=== PATIENT | male | born 1955 | race Caucasian/White ===

== ENCOUNTER 2021-05-15 12:08 | Inpatient (IN) | payer MEDICAID ==
[~2021-05-15] VITALS: Ht 175.3 cm; Wt 62.1 kg
--- NOTE | 2021-05-15 12:14 | NUR ---
HOME HEALTH & HOSPICE CONSULTAN, XENIA, , WANTS TO BE CALLED TO PICK HIM UP ONCE MEDICALLY CLEARED
--- NOTE | 2021-05-15 12:19 | NUR ---
BILATERAL LOWER EXTREMITY PAIN/SWELLING, AND ULCERATION.
--- NOTE | 2021-05-15 12:19 | NUR ---
BIB RA 860 C/O L LEG SWELLING/PAIN. CLINICAL DENTAL TECHNICIAN ON SCENE CALLED FOR MEDICAL CLEARANCE. KNOWN HEROIN USER. AAOX3, BREATHING EVEN AND UNLABORED, ASSISTED TO ER BED 14, CHANGED TO GOWN
[2021-05-15] MEDS ORDERED: PIPERACILLIN /TAZOBACTAM 3.375 G in IV D5W 50 ML IV ONE (12:30)
[2021-05-15] MEDS ORDERED: VANCOMYCIN 1 GM in IV D5W 250 ML IV ONE (12:30)
--- NOTE | 2021-05-15 12:50 | NUR ---
BLOOD SAMPLE OBTAINED AND SENT TO LAB
--- NOTE | 2021-05-15 13:06 | NUR ---
COVID SAMPLE OBTAINED AND SENT TO LAB
[2021-05-15 13:08] LABS: BASOPHILS # (AUTO) 0.4 K/uL (0.0-0.2); BASOPHILS % (AUTO) 1.4 % (0.0-2.0); EOSINOPHILS % (AUTO) 0.1 % (0.0-6.0); HEMATOCRIT 31 % (39-51); LYMPHOCYTES # (AUTO) 0.5 K/uL (0.8-4.8); MEAN CORPUSCULAR HGB CONC 32 g/dl (31.0-36.0); MEAN CORPUSCULAR VOLUME 86 fL (80-96); MONOCYTES # (AUTO) 0.6 K/uL (0.1-1.30); MONOCYTES % (AUTO) 2.1 % (2.0-12.0); NEUTROPHILS # (AUTO) 24.7 K/uL (1.8-8.9); NEUTROPHILS % (AUTO) 94.4 % (43.0-81.0); PLATELET COUNT (AUTO) 605 K/uL (150-450); RED BLOOD CELL COUNT(AUTO) 3.64 MIL/uL (4.5-6.0); WHITE BLOOD COUNT (AUTO) 26.2 K/uL (4.3-11.0)
--- NOTE | 2021-05-15 13:10 | NUR ---
EKG BEING DONE AT BEDSIDE
[2021-05-15 13:20] LABS: CALCIUM, SERUM 8.1 mg/dL (8.5-10.1); CARBON DIOXIDE 22 mmol/L (21-32); CHLORIDE 93 mmol/L (98-107); GLUCOSE 121 mg/dL (74-106); POTASSIUM 5.5 mmol/L (3.5-5.1); SODIUM SERUM 127 mmol/L (136-145)
[2021-05-15 13:24] LABS: UREA NITROGEN, BLOOD 101 mg/dL (7-18)
[2021-05-15 13:25] LABS: CREATININE 7.6 mg/dL (0.6-1.3)
--- NOTE | 2021-05-15 13:29 | NUR ---
TAKEN TO CT
[2021-05-15] MEDS ORDERED: IV NS 0.9% 1,000 ML BAG IV ONE (13:30)
[2021-05-15] MEDS ORDERED: MORPHINE SULFATE INJ 4 MG/ML DISP.SYRIN ONE (13:38)
--- NOTE | 2021-05-15 13:42 | NUR ---
panel on-call paged
--- NOTE | 2021-05-15 13:50 | NUR ---
CALLED NURSING SUP REGARDING PT BED
[2021-05-15] MEDS ORDERED: MORPHINE SULFATE INJ 2 MG/ML DISP.SYRIN IV ONE (14:00)
--- NOTE | 2021-05-15 14:08 | NUR ---
UNABLE TO PROVIDE URINE SAMPLE AT THIS TIME. WILL TRY AGAIN LATER
--- NOTE | 2021-05-15 14:54 | NUR ---
urine sample obtained and sent to lab
--- NOTE | 2021-05-15 15:25 | NUR ---
ROOM 114-1
[2021-05-15 15:28] LABS: BILIRUBIN,URINE SMALL (NEGATIVE); COLOR,URINE DARK YELLOW (YELLOW); LEUKOCYTE ESTERASE ,URINE SMALL (NEGATIVE); NITRITE, URINE POSITIVE (NEGATIVE); PROTEIN,URINE >=300 mg/dl (NEGATIVE); UGLUCOSE NEGATIVE (NEGATIVE); UROBILINOGEN,URINE 0.2 EU/dL (0.2)
[2021-05-15 15:43] LABS: BACTERIA,URINE 3+ /HPF (None Seen); RBC,URINE 81-100 /HPF (0-2); SQUAMOUS EPITHELIAL CELL,UR 0-2 /HPF (None Seen)
--- NOTE | 2021-05-15 15:50 | NUR ---
Sw received consult for homelessness/bilateral lower extremity wounds. Will follow-up at a later time.
[2021-05-15] MEDS ORDERED: Z GUARD REMEDY 4 OZ OINT TP PRN (16:00)
[2021-05-15] MEDS ORDERED: MAGNESIUM HYDROXIDE 30 ML UDC PO PRN (16:00)
--- NOTE | 2021-05-15 17:00 | NUR ---
MS/BOOM CRANE OPERATOR NOTES RECEIVED PATIENT A TRANSFER FROM ER VIA RNEY.PATIENT IS ALERT AND ORIENTED X2-3, ABLE TO MAKE NEEDS KNOWN. STABLE ON ROOM AIR. SEVERAL EXCORIATION WOUNDS ON BILATERAL LOWER AND UPPER EXTREMITIES. PICTURES TAKEN AND WOUND CARE CONSULT ORDERED. IV ACCESS ON RIGHT UPPER ARM #20G IS INTACT AND PATENT ON SALINE LOCK. ORIENTED PATIENT TO THE UNIT. SAFETY MEASURES IN PLACED: BED LOCKED ON LOWEST POSITION, SIDE RAILS UPX2, CALL LIGHT WITHIN REACH. WILL CONTINUE TO MONITOR.
[2021-05-15] MEDS: LORAZEPAM INJ 2 MG/ML VIAL IV PRN (17:20)
[2021-05-15] MEDS: ONDANSETRON HCL/PF 4 MG/2 ML VIAL IVP PRN (17:20)
[2021-05-15] MEDS: NICOTINE PATCH (21MG) 21 MG PATCH.TD24 TD SCH (17:23)
[2021-05-15 20:00] VITALS: BP 135/73
--- NOTE | 2021-05-15 20:00 | NUR ---
MS RN NOTE PT IN BED A/O X 2. NO SOB, NO DISTRESS OR DISCOMFORT NOTED. DENIES PAIN. NATE WITH SL 20G INTACT AND PATENT. KEPT HIM DRY AND CLEAN. ALL NEEDS ATTENDED. SIDE RAILS UP X 3 AND CALL LIGHT WITHIN REACH. VSS. CONTINUE TO MONITOR HIM.
[2021-05-15] MEDS: ACETAMINOPHEN 325 MG TABLET PO PRN (21:26)
[2021-05-15] MEDS: PIPERACILLIN /TAZOBACTAM 2.25 G in IV D5W 50 ML IV SCH (21:26)
[2021-05-15] MEDS: HEPARIN SODIUM, PORCINE 5000 UNITS/1 ML VIAL SQ SCH (21:27)
[2021-05-15 21:35] LABS: ALANINE AMINOTRANSFERASE 17 U/L (12-78); ALKALINE PHOSPHATASE 149 U/L (46-116); ASPARTATE AMINOTRANSFERASE 40 U/L (15-37); BILIRUBIN,DIRECT 0.1 mg/dL (0.0-0.2); BILIRUBIN,TOTAL 0.3 mg/dL (0.2-1.0); TOTAL PROTEIN, SERUM 7.8 g/dL (6.4-8.2)
[2021-05-16 04:00] VITALS: BP 133/31
[2021-05-16] MEDS: PIPERACILLIN /TAZOBACTAM 2.25 G in IV D5W 50 ML IV SCH ×3 (04:16→21:29)
--- NOTE | 2021-05-16 06:37 | NUR ---
MS RN NOTE PT UNABLE TO URINATE ALL NIGHT ON BLADDER SCANNER NOTED 600 ML RESIDUAL. INFORMED NONI EID WATCHMAKER APPRENTICE AND RECEIVED NEW ORDER TO INSERT F/C. ORDER NOTED AND CARRIED OUT.
--- NOTE | 2021-05-16 07:07 | NUR ---
MS RN NOTE TRIED TO INSERT F/C BUT NO SUCCESS PT IS C/O PAIN. NO ABD DISTENTION NOTED. ENDORSE TO DAY SHIFT NURSE TO FOLLOW UP. PT DENIES ANY PAIN OF DISCOMFORT PRIOR TO INSERT OF F/C.
[2021-05-16 07:28] LABS: BASOPHILS # (AUTO) 0.1 K/uL (0.0-0.2); BASOPHILS % (AUTO) 0.5 % (0.0-2.0); EOSINOPHILS % (AUTO) 0.2 % (0.0-6.0); HEMATOCRIT 27 % (39-51); HEMOGLOBIN 8.6 g/dL (13.5-17.5); LYMPHOCYTES # (AUTO) 0.7 K/uL (0.8-4.8); LYMPHOCYTES % (AUTO) 3.4 % (20.0-44.0); MEAN CORPUSCULAR HGB CONC 32 g/dl (31.0-36.0); MEAN CORPUSCULAR VOLUME 86 fL (80-96); MONOCYTES # (AUTO) 0.7 K/uL (0.1-1.30); MONOCYTES % (AUTO) 3.4 % (2.0-12.0); NEUTROPHILS # (AUTO) 18.8 K/uL (1.8-8.9); NEUTROPHILS % (AUTO) 92.5 % (43.0-81.0); PLATELET COUNT (AUTO) 496 K/uL (150-450); RED BLOOD CELL COUNT(AUTO) 3.09 MIL/uL (4.5-6.0); WHITE BLOOD COUNT (AUTO) 20.4 K/uL (4.3-11.0)
--- NOTE | 2021-05-16 07:46 | NUR ---
MS RN OPENING NOTES RECEIVED PATIENT IN BED, AWAKE, A/O X2. PATIENT ON ROOM AIR; NO SOB NOTED AT THIS TIME. PER ENGINEERING INTERN NURSE, DID NOT HAVE ANY OUTPUT SINCE LAST NIGHT. SHERMAN INSERTION WAS UNSUCCESSFUL. WILL TRY AGAIN LATER. NATE IV ACCESS PRESENT AND INTACT. SAFETY PRECAUTIONS IN PLACE; BED IN LOW POSITION AND LOCKED, RAILS UP X2, CALL LIGHT WITHIN REACH. WILL CONTINUE TO MONITOR PATIENT.
[2021-05-16] MEDS: HEPARIN SODIUM, PORCINE 5000 UNITS/1 ML VIAL SQ SCH ×2 (08:10→21:32)
[2021-05-16] MEDS: NICOTINE PATCH (21MG) 21 MG PATCH.TD24 TD SCH (08:12)
[2021-05-16 09:00] VITALS: BP 122/64
[2021-05-16] MEDS ORDERED: NICOTINE PATCH (21MG) 21 MG PATCH.TD24 TD SCH (09:00)
--- NOTE | 2021-05-16 09:20 | NUR ---
MS RN NOTES UNABLE TO NSERT REGULAR SHERMNA, SOMETHING IS IN THE WAY. PATIENT NOT AWARE IF HE HAS ANY PROSTATE PROBLEMS. MD NOTIFIED. OK PER MD TO TRY BETINA SHERMAN.
--- NOTE | 2021-05-16 10:05 | NUR ---
MS RN NOTES SHERMAN IN. CLOUDY YELLOWISH BRYAN URINE DRAINING.
--- NOTE | 2021-05-16 11:13 | NUR ---
WOUND CARE CONSULT: PT PRESENTS WITH RT ARM RAISED AREA AND OPEN CRUSTED AREA WITH PURULENT DRAINAGE, SACRAL STAGE 3 ULCER AND LOWER LEG WOUNDS, SCARS, SCABS WITH REDNESS AND EDEMA, ALL PRESENT ON ADMISSION. RECOMMENDATIONS MADE FOR SACRAL WOUND CARE AND SKIN PROTECTION. DISCUSSED WITH NURSING STAFF. SURGICAL WOUND CONSULT CALLED TO DR STEPHANIE LICONA FOR SACRAL WOUND AND DPM CONSULT CALLED TO DR ESTRADA. FOR UPPER EXTREMITY, DEFER TO PMD FOR POSSIBLE GENERAL SURGERY CONSULT. MD IN AGREEMENT WITH PLAN OF CARE. PT IS ON MAYA ISOFLEX LOW AIRLOSS BED. Addendum: 05/16/21 at 1116 by ZAY OSPINA WNDNU Amended: Links added.
[2021-05-16 11:29] LABS: ALBUMIN 1.6 g/dL (3.4-5.0); BILIRUBIN,TOTAL 0.3 mg/dL (0.2-1.0); CALCIUM, SERUM 7.8 mg/dL (8.5-10.1); MAGNESIUM 2.4 mg/dL (1.8-2.4); TOTAL PROTEIN, SERUM 6.3 g/dL (6.4-8.2)
[2021-05-16] MEDS ORDERED: HYDROGEL DRESSING 90 GM TUBE TP PRN (11:30)
[2021-05-16 11:36] LABS: CREATININE 8.7 mg/dL (0.6-1.3); POTASSIUM 6.7 mmol/L (3.5-5.1)
[2021-05-16 11:37] LABS: PHOSPHORUS 8.8 mg/dL (2.5-4.9)
--- NOTE | 2021-05-16 11:40 | NUR ---
MS RN NOTES RECEIVED CALL FROM LAB WITH CRITICAL FOR POTASSIUM 6.7, BUN 114, CR 8.7 AND PHOS 8.8 MD NOTIFIED AND AWARE
[2021-05-16] MEDS: HYDROGEL DRESSING 90 GM TUBE TP SCH (11:59)
[2021-05-16 12:08] VITALS: BP 122/64
[2021-05-16] MEDS ORDERED: DEXTROSE 50%-WATER 50 ML DISP.SYRIN IVP ONE (12:30)
[2021-05-16] MEDS ORDERED: Calcium Gluconate 1GM/10ML 4.65 MEQ in IV D5W 50 ML IV ONE (12:30)
[2021-05-16] MEDS ORDERED: SODIUM POLYSTYRENE SULFONATE 15 G/60 ML BOTTLE PO ONE (12:30)
[2021-05-16] MEDS ORDERED: INSULIN REGULAR, HUMAN 100 UNIT/ML 10 ML VIAL IV ONE (12:30)
[2021-05-16] MEDS ORDERED: IV NS 0.9% 1,000 ML IV ONE (13:00)
--- NOTE | 2021-05-16 13:40 | NUR ---
MS RN NOES PER NEPHROLOGY 10 UNITS REGULAR INSULIN IVP WITH DEXTROSE INJECTION 50% DYSP SYRINGE 50 MLS PRIOR BS GLUCOSE AT 105
--- NOTE | 2021-05-16 14:20 | NUR ---
MS RN NOTES RE-ASSESSED BLOOD GLUCOSE; BS 89
[2021-05-16] MEDS ORDERED: IV D5/ 0.9% NACL 1,000 ML IV PRN ×2 (16:30)
[2021-05-16 16:57] VITALS: BP 122/64
--- NOTE | 2021-05-16 17:03 | NUR ---
SS Consult requested for homelessness. SW will follow up at a later time.
--- NOTE | 2021-05-16 18:49 | NUR ---
MS RN CLOSING NOTES PATIENT REMAINS IN BED, ASLEEP BUT EASILY AWAKEN, A/O X2. PATIENT ON ROOM AIR; NO SOB NOTED DURING SHIFT. SHERMAN CATH IN PLACE DRAINING LITTLE PALE URINE. NATE IV ACCESS PRESENT AND INTACT, NATE MIDLINE PRESENT AND WELL AND L HAND G #22 IV ACCESS. ALL NEEDS ATTENDED DURING THE DAY. SAFETY PRECAUTIONS IN PLACE; BED IN LOW POSITION AND LOCKED, RAILS UP X2, CALL LIGHT WITHIN REACH. WILL ENDORSE TO CLAMP TRUCK DRIVER NURSE FOR AZALEA.
[2021-05-16 20:00] VITALS: BP 132/78
--- NOTE | 2021-05-16 20:00 | NUR ---
MS RN NOTE PT IN BED SITTING UP, A/O X 2, NO DISTRESS OR DISCOMFORT NOTED. DENIES PAIN. KEPT HIM DRY AND CLEAN. SL NATE MIDLINE #20 G AND LT #22G SL INTACT AND PATENT. NO S/S OF INFILTRATION NOTED. ALL NEEDS ATTENDED. VSS. CONTINUE TO MONITOR HIM.
[2021-05-17 04:00] VITALS: BP 146/86
[2021-05-17] MEDS: PIPERACILLIN /TAZOBACTAM 2.25 G in IV D5W 50 ML IV SCH ×3 (05:17→22:00)
--- NOTE | 2021-05-17 06:41 | NUR ---
MS RN NOTE PT IN BED AWAKE. NO DISTRESS OR DISCOMFORT NOTED. NO S/S OF PAIN NOTED. ALL NEEDS ATTENDED. KEPT HIM DRY AND CLEAN. F/C INTACT AND PATENT DRAINING YUKI COLOR URINE. SIDE RAILS UP X 2 AND CALL LIGHT WITHIN REACH. WILL ENDORSE TO DAY SHIFT NURSE FOR CONTINUE TO CARE.
[2021-05-17 08:00] VITALS: BP 149/59
[2021-05-17] MEDS: NICOTINE PATCH (21MG) 21 MG PATCH.TD24 TD SCH (08:09)
[2021-05-17] MEDS: THERAHONEY GEL 1.5 OZ TUBE TP SCH (08:12)
[2021-05-17] MEDS: HEPARIN SODIUM, PORCINE 5000 UNITS/1 ML VIAL SQ SCH ×2 (09:00→21:00)
[2021-05-17] MEDS: HYDROGEL DRESSING 90 GM TUBE TP SCH (09:11)
--- NOTE | 2021-05-17 09:56 | NUR ---
RN NOTE PT RESTING IN BED. A/O X3, NOT IN RESPIRATORY DISTRESS OR DISCOMFORT. DENIES PAIN. SL NATE MIDLINE #20 G AND LT #22G SL INTACT AND PATENT. SHERMAN CATH IN PLACE, SMALL AMOUNT OF URINE NOTED. WILL CONTINUE TO MONITOR HIM.
[2021-05-17 11:39] LABS: CALCIUM, SERUM 7.9 mg/dL (8.5-10.1)
[2021-05-17 11:48] LABS: POTASSIUM 6.6 mmol/L (3.5-5.1)
[2021-05-17 11:49] LABS: CREATININE 9.4 mg/dL (0.6-1.3)
[2021-05-17 12:00] VITALS: BP 121/78
[2021-05-17] MEDS ORDERED: ALBUTEROL HALF STRENGTH 1.25 MG/3 ML VIAL.NEB NEB SCH (12:00)
[2021-05-17] MEDS ORDERED: INSULIN REGULAR, HUMAN 100 UNIT/ML 10 ML VIAL IV ONE (12:00)
[2021-05-17] MEDS ORDERED: DEXTROSE 50%-WATER 50 ML DISP.SYRIN IVP ONE (12:00)
[2021-05-17] MEDS ORDERED: Calcium Gluconate 1GM/10ML 4.65 MEQ in IV D5W 50 ML IV ONE (12:00)
--- NOTE | 2021-05-17 13:45 | NUR ---
"SS Consult: SS consult for homelessness and bilateral lower extremity wounds. Pt. Is a 66-year-old male who demonstrates adequate insight to the reason for hospitalization. Pt. was oriented x3, alert, and cooperative. Pt. has hard of hearing. During interview, pt. was capable of following directions, made appropriate eye-contact, and appeared unkempt. Pt.s speech was at a normal rate and his mood was irritable. SW explored pt.s hx of substance abuse. Pt. reports using opioids [Heroin] for nearly 12 years. The last day used was on Saturday [05/15/21]. Pt. stated that he wants to get help but rejected referrals to rehab. SW provided pt. with [facility] Referrals. Pt. appears to be at the contemplation phase of change with his substance dependence. SW explored pt.s mental health. Pt. reported no hx of mental health, suicidal or homicidal ideation. Pt. denies auditory hallucinations, visual hallucinations, paranoia, or delusions. SW explored pt.s living situation. Per pt., he has been homeless for 12 years. Pt. expressed that he does not like shelters. Pt. stated that he has been speaking with this lady Fu, a Home and Automatic Screwmaker, that might help him get placed once discharge from hospital. Plan: SW provided available resources and pt. accepted. Pt. was not able to sign waiver, SW left waiver in chart. Resources Provided: [facility]: [address] [place] [address] Intake hours: 5:45am9:00am, walk-ins Saturday, Saturday, [facility]: [address] [place] [address] Intake hours: 5:45am12:30pm, Saturday and [facility]: [id number] [place] [address] Intake hours: 8:00am2:00pm, Saturday through winter Shelters: [facility] 2 | [facility] Address: Confidential (call for location ) Population Served: Coed # of Beds: 57 SPA 4 | [place] [facility] Provider: [facility] Last Address: [address] [facility], [address] # of Beds: 49 Population Served: Coed SPA 6 | [facility] Provider: [facility] Last Address: [address] [facility], [address] # of Beds: 49 Population Served: Coed [facility] Provider: Tory Bourgeois AZNarda Address: [address] [facility] [address] # of Beds: 20 Population Served: Women [facility] Facility Provider: Home at Last Address: [address] [facility] [address] # of Beds: 30 Population Served: Women SPA 8 | [facility] Provider: [facility] [place] Address: [address] [facility] [address] # of Beds: 65 Population Served: [facility] Year-round shelters: [place] [address] [address] ; [facility] [place] [address] [place] [address]; [place] [facility] [id number] [facility] [id number] Winter Shelters: [facility] [place] Provider: [facility] [place] Address: [address] [facility], [address] # of Beds: 47 Population Served: Coed SPA 6 | [facility] Catrachita Collado Day Provider: Home at Last Address: [address] [facility], [address] # of Beds: 66 Population Served: Andrew link bird [place] Provider: First to Serve Address: [address] [facility], [address] # of Beds: 56 Population Served: Andrew Bernstein Provider: /[facility] Address: [address] [facility], [address] # of Beds: 49 Population Served: [place] SPA 8 | [place] [facility] Provider: [facility] Serve Address: [facility] Vincent # of Beds: 37 Population Served: Coed Hygiene: [facility]: [address] [place] ; [facility] [address] [facility] ; [facility] [address] [facility] . Food Resources: [facility] at [facility]- [address] [facility]. [place]; Meet Each Need with Dignity ([facility]) [address] [facility]; [facility] [address] [facility]; [facility] [address] [facility]. Mental Health resources provided: [facility] [address] [place], [place] [phone] ; [facility] [place] [address] [facility] [address], [place], [place] [phone] ; [facility] [address] [address] Castañeda[place], [place] [phone] ; [facility] [address] [place], [place] [phone] Healthcare Clinics: [facility] [address] [facility], [address] [place]. [place] ; [facility] [address] [facility] [address] [place] [address]; [place] [address] [facility]. [place] [phone] Counseling--Outpatient [facility] [address] [facility], [address] [place], [place] [phone] (Specializes in in-depth psychotherapy for emotional distress: anxiety, depression, interpersonal conflicts, life transitions, childhood abuse) [facility] Guidance Center [address] [place] [address] (Assist with solving problem marital difficulties, separation & divorce, aging parents, & grief, chronic & terminal illness) [facility] [address] [place], [place] [address] (Deal with loss & grief, anxiety, marital difficulties) Homebound/Mental Health Services [address] [facility] [address] [place], [place] [phone] (Provide in-home mental services to people who are incapable of leaving their homes) [facility] Needs of the Elderly Senior Service/Resource Center [address] [place] [address] [facility] [address] [place], [place] [phone] PSYCHIATRIC OUTPATIENT SERVICES [facility] Partial Hospitalization and Intensive Outpatient Program (Managed Care and [facility] Only)[address] Troy Kramer[facility] [phone] [facility] Partial Hospitalization and Outpatient [id number] Sebastian[facility] [address] [place], [place] [phone] [facility] [place] Hta[address] [facility] [address] [place], [place] [phone] [facility] Partial Hospitalization and Outpatient Ozngzbv60161 [place], [phone] Substance Abuse resources provided included: [facility] Substance Abuse Self-Helpline (SAS) ; C[facility]LP [address] [facility] [place]. [place] [address] ; [facility] [address] [facility] [address] ; [facility] [address] Sebastian BldivinaStat[facility] Island University [facility] [address] ; [facility] [address] [facility] [address] ; [facility] [address] [facility] [phone] ; [facility] [address] [facility] [phone] ; [facility] Substance Abuse Helpline(SAS)[facility] ; [facility] ; [facility] [place]; [facility] [place]; [facility] [place]; [facility] [address]; [facility]; [facility] [place]; [facility] [place]; [facility], [facility]. [place]; Alcoholics Anonymous -SFV; Us-Aiwa-Lkfonpq ; Marijuana Anonymous -SFV; Narcotics Anonymous www.na.org;"
[2021-05-17 16:00] VITALS: BP 159/67
--- NOTE | 2021-05-17 18:53 | NUR ---
RN NOTE PT RESTING IN BED. A/O X3, NOT IN RESPIRATORY DISTRESS OR DISCOMFORT. DENIES PAIN. SL NATE MIDLINE #20 G AND LT #22G SL INTACT AND PATENT. SHERMAN CATH IN PLACE, SMALL AMOUNT OF URINE NOTED. WILL CONTINUE TO MONITOR. PT FOR HD. CONSENT FORM SIGNED FOR TREATMENT AND HD PERMACATH INSERTION. DUE MEDICATIONS GIVEN. NEEDS ATTENDED.
--- NOTE | 2021-05-17 19:15 | NUR ---
RN OPENING NOTES RECEIVED PATIENT ON BED , ALERT ORIENTED X 3, RESPIRATORY EVEN AND UNLABORED NO SOB NOTED. REMAIN AFEBRILE, ON ROOM AIR SATING AT 98%. NOTED WITH RIGHT UPPER ARM MID LINE AND LEFT HAND IN LINE #22, INTACT, PATENT, FLUSHED WITH NS, NO INFILTRATION NOTED AT SITE. RIGHT GROIN HD SITE, NO BLEEDING NOTED. FOR HEMODIALYSIS TODAY. SHERMAN CATHETER INTACT AND IN PLACED DRAINING WELL. ALL SAFETY MEASURE PROVIDED. BED IN LOWEST POSITION, LOCKED. CONTINUE TO MONITOR.
[2021-05-17 20:00] VITALS: BP 154/97
[2021-05-17] MEDS ORDERED: LINEZOLID RTU BAG 600 MG in PREMIX 1 EA IV SCH (21:00)
[2021-05-17] MEDS: LINEZOLID 600 MG TABLET PO SCH (22:53)
[2021-05-18 04:00] VITALS: BP 155/79
[2021-05-18] MEDS: PIPERACILLIN /TAZOBACTAM 2.25 G in IV D5W 50 ML IV SCH ×3 (04:59→21:47)
--- NOTE | 2021-05-18 07:27 | NUR ---
RN CLOSING NOTES NO SIGNIFICANT CHANGES THROUGH OUT THE SHIFT, RESPIRATORY EVEN AND UNLABORED NO SOB NOTED. REMAIN AFEBRILE, ON ROOM AIR SATING AT 98%. PLACED ON NPO. SHERMAN CATHETER INTACT AND IN PLACED DRAINING WELL. ALL DUE MEDS GIVEN ORDERED. ALL SAFETY MEASURE PROVIDED. BED IN LOWEST POSITION, LOCKED. CONTINUE TO MONITOR.
--- NOTE | 2021-05-18 07:44 | NUR ---
RN OPENING NOTE PATIENT RECEIVED IN BED, AWAKE, A&OX3. PATIENT ON ROOM AIR WITH NO SIGNS OF LABORED BREATHING AT THIS TIME. SHERMAN CATH IN PLACE, PATENT. RIGHT UA MIDLINE, LEFT HAND 22G SL AND RIGHT GROIN HD CATH IN PLACE. NO SIGNS OF ACUTE DISTRESS NOTED AT THIS TIME. BED LOCKED AND IN LOWEST POSITION, CALL LIGHT WITHIN REACH, 2 SIDE RAILS UP. WILL CONTINUE TO MONITOR.
[2021-05-18 08:00] VITALS: BP 148/88
[2021-05-18] MEDS: LINEZOLID 600 MG TABLET PO SCH ×2 (08:02→21:47)
[2021-05-18] MEDS: HYDROGEL DRESSING 90 GM TUBE TP SCH (08:02)
[2021-05-18] MEDS: THERAHONEY GEL 1.5 OZ TUBE TP SCH (08:02)
[2021-05-18] MEDS: NICOTINE PATCH (21MG) 21 MG PATCH.TD24 TD SCH (08:03)
[2021-05-18] MEDS: HEPARIN SODIUM, PORCINE 5000 UNITS/1 ML VIAL SQ SCH ×2 (08:38→21:49)
--- NOTE | 2021-05-18 08:38 | NUR ---
RN NOTE PATIENT SCHEDULED FOR SURGERY TODAY. HEPARIN HELD THIS AM PER [facility] WHIT ORDER. WILL CONTINUE TO MONITOR.
[2021-05-18 09:20] LABS: CALCIUM, SERUM 7.6 mg/dL (8.5-10.1); POTASSIUM 5.7 mmol/L (3.5-5.1)
[2021-05-18] MEDS ORDERED: LIDOCAINE 1% INJ 50 ML MDV IJ ONE (09:53)
[2021-05-18] MEDS ORDERED: BUPIVACAINE 0.25% 75 MG/30 ML VIAL ONE (09:53)
[2021-05-18] MEDS ORDERED: IOHEXOL 240MG/ML 50 ML IV ONE (09:53)
[2021-05-18] MEDS ORDERED: DEXAMETHASONE SOD PHOSPHATE 10 MG/ML VIAL ONE (09:54)
[2021-05-18] MEDS ORDERED: DEXAMETHASONE SOD PHOSPHATE 4 MG/ML VIAL ONE (09:54)
[2021-05-18 09:58] LABS: CREATININE 7.7 mg/dL (0.6-1.3)
[2021-05-18] MEDS ORDERED: methylPREDNISolone ACETATE 80 MG/ML VIAL ONE (10:07)
[2021-05-18] MEDS ORDERED: FAMOTIDINE/PF INJ 20 MG/2 ML VIAL IV ONE (11:56)
[2021-05-18] MEDS ORDERED: FENTANYL PF 250MCG/5ML AMPUL ONE (11:56)
--- NOTE | 2021-05-18 12:29 | NUR ---
RN NOTE PATIENT PICKED UP FOR SURGERY.
[2021-05-18] MEDS ORDERED: SILVER NITRATE APPLICATOR 1 EA BOX ONE (12:50)
[2021-05-18] MEDS: MORPHINE SULFATE INJ 2 MG/ML DISP.SYRIN IV PRN (13:44)
--- NOTE | 2021-05-18 13:59 | NUR ---
RN NOTE PATIENT RETURNED FROM SURGERY. VITAL SIGNS STABLE. PATIENT MOANING AND SCREAMING IN PAIN REPORTING 10/10 PAIN IN BILATERAL LOWER EXTREMITIES, PER OR REPORT, PATIENT DID NOT RECEIVE PAIN MEDICATION. MORPHINE GIVEN PER PRN ORDER. WILL CONTINUE TO MONITOR.
[2021-05-18] MEDS ORDERED: VANCOMYCIN 1 GM in IV D5W 250 ML IV SCH (14:00)
[2021-05-18 16:00] VITALS: BP 98/66
--- NOTE | 2021-05-18 18:37 | NUR ---
RN CLOSING NOTE PATIENT REMAINS IN BED, AWAKE, A&OX3. PATIENT ON ROOM AIR WITH NO SIGNS OF LABORED BREATHING AT THIS TIME. SHERMAN CATH IN PLACE, PATENT. RIGHT UA MIDLINE, LEFT HAND 22G SL AND RIGHT GROIN HD CATH IN PLACE. NO SIGNS OF ACUTE DISTRESS NOTED AT THIS TIME. ALL NEEDS ATTENDED DURING SHIFT. BED LOCKED AND IN LOWEST POSITION, CALL LIGHT WITHIN REACH, 2 SIDE RAILS UP. WILL ENDORSE TO CCTV TECHNICIAN NURSE.
--- NOTE | 2021-05-18 19:00 | NUR ---
RN NOTE RECEIVED PATIENT IN BED, AO X 3, IN NO ACUTE DISTRESS AT THIS TIME. SATURATION AT 99% ON ROOM AIR, HR IS 99. NOTED IV SITE AT L HAND 22G, AND NATE MIDLINE, PATENT AND FLUSHING WELL, AND R FERMORAL HD CATH, NO S/S OF INFECTION. SHERMAN CATHETER CONNECTED TO URINE BAG IN PLACE, DRAINING TO A CLEAR TO CLOUDY, YELLOW OUTPUT. SAFETY MEASURES IMPLEMENTED. PATIENT BED ALARM IS ON. HEAD OF BED ELEVATED. BED IS LOCKED, IN LOWEST POSITION AND SIDE RAILS UP. CALL LIGHT WITHIN REACH OF THE PATIENT. WILL CONTINUE TO MONITOR AND REASSESS FOR ANY CHANGES.
[2021-05-18 20:00] VITALS: BP 114/62
[2021-05-19] VITALS: BP 114/62
[2021-05-19 04:00] VITALS: BP 153/83
[2021-05-19] MEDS: PIPERACILLIN /TAZOBACTAM 2.25 G in IV D5W 50 ML IV SCH ×2 (06:02→12:06)
--- NOTE | 2021-05-19 07:31 | NUR ---
RN OPENING NOTE PATIENT RECEIVED IN BED, SLEEPING. PATIENT ON ROOM AIR WITH NO SIGNS OF LABORED BREATHING AT THIS TIME. SHERMAN CATH IN PLACE, PATENT. RIGHT UA MIDLINE, LEFT HAND 22G SL AND RIGHT GROIN HD CATH IN PLACE. NO SIGNS OF ACUTE DISTRESS NOTED AT THIS TIME. BED LOCKED AND IN LOWEST POSITION, CALL LIGHT WITHIN REACH, 2 SIDE RAILS UP. WILL CONTINUE TO MONITOR.
[2021-05-19 08:00] VITALS: BP 145/82
[2021-05-19 08:03] LABS: CALCIUM, SERUM 7.3 mg/dL (8.5-10.1); CREATININE 5.5 mg/dL (0.6-1.3); POTASSIUM 4.7 mmol/L (3.5-5.1)
[2021-05-19] MEDS: LINEZOLID 600 MG TABLET PO SCH (08:31)
[2021-05-19] MEDS: NICOTINE PATCH (21MG) 21 MG PATCH.TD24 TD SCH (08:31)
[2021-05-19] MEDS: HEPARIN SODIUM, PORCINE 5000 UNITS/1 ML VIAL SQ SCH ×2 (08:32→20:22)
[2021-05-19] MEDS: THERAHONEY GEL 1.5 OZ TUBE TP SCH (08:34)
[2021-05-19] MEDS: HYDROGEL DRESSING 90 GM TUBE TP SCH (08:34)
[2021-05-19] MEDS: MORPHINE SULFATE INJ 2 MG/ML DISP.SYRIN IV PRN (10:51)
--- NOTE | 2021-05-19 15:45 | NUR ---
SS Consult/Discharge: Upon discharge, pt. stated that Catrachita Phipps [close friend, or [phone]] will pick him up.
[2021-05-19 16:00] VITALS: BP 150/77
--- NOTE | 2021-05-19 18:32 | NUR ---
RN CLOSING NOTE PATIENT REMAINS IN BED, RESTING. PATIENT ON ROOM AIR WITH NO SIGNS OF LABORED BREATHING AT THIS TIME. SHERMAN CATH IN PLACE, PATENT. RIGHT UA MIDLINE, LEFT HAND 22G SL AND RIGHT GROIN HD CATH IN PLACE. NO SIGNS OF ACUTE DISTRESS NOTED AT THIS TIME. ALL NEEDS ATTENDED DURING SHIFT. BED LOCKED AND IN LOWEST POSITION, CALL LIGHT WITHIN REACH, 2 SIDE RAILS UP. WILL ENDORSE TO TRANSPORTATION CLERK NURSE.
--- NOTE | 2021-05-19 19:10 | NUR ---
RN NOTE RECEIVED PATIENT IN BED, AO X 3, IN NO ACUTE DISTRESS AT THIS TIME. SATURATION AT 94% ON ROOM AIR, HR IS 90. NOTED NATE MIDLINE, PATENT AND FLUSHING WELL, AND R FERMORAL HD CATH, NO S/S OF INFECTION. SHERMAN CATHETER CONNECTED TO URINE BAG IN PLACE, DRAINING TO A CLEAR TO CLOUDY, YELLOW OUTPUT. NOTED WOUND DRESSING AT R ARM, AND BLE DRY AND INTACT. SAFETY MEASURES IMPLEMENTED. PATIENT BED ALARM IS ON. HEAD OF BED ELEVATED. BED IS LOCKED, IN LOWEST POSITION AND SIDE RAILS UP. CALL LIGHT WITHIN REACH OF THE PATIENT. WILL CONTINUE TO MONITOR AND REASSESS FOR ANY CHANGES.
[2021-05-19 20:00] VITALS: BP 145/91
[2021-05-19] MEDS: LORAZEPAM INJ 2 MG/ML VIAL IV PRN (20:22)
[2021-05-20] VITALS: BP 145/91
[2021-05-20] MEDS: MORPHINE SULFATE INJ 2 MG/ML DISP.SYRIN IV PRN (03:54)
[2021-05-20 04:00] VITALS: BP_SYST 132; BP_SYST 161; BP_DIAS 83; BP_DIAS 90
--- NOTE | 2021-05-20 04:30 | NUR ---
RN NOTE PT COMPLAINING OF PAIN AT POST OP SITE, BP NOTED AT 161/90. PRN MORPHINE 4 MG ADMINISTERED ORDERED. BP RECHECKED AND RESULTED 143/88.
[2021-05-20 06:53] LABS: BASOPHILS # (AUTO) 0.1 K/uL (0.0-0.2); BASOPHILS % (AUTO) 0.8 % (0.0-2.0); EOSINOPHILS % (AUTO) 1.6 % (0.0-6.0); HEMATOCRIT 27 % (39-51); HEMOGLOBIN 8.7 g/dL (13.5-17.5); LYMPHOCYTES # (AUTO) 0.9 K/uL (0.8-4.8); LYMPHOCYTES % (AUTO) 8.3 % (20.0-44.0); MEAN CORPUSCULAR HGB CONC 32 g/dl (31.0-36.0); MEAN CORPUSCULAR VOLUME 84 fL (80-96); MONOCYTES % (AUTO) 8.5 % (2.0-12.0); NEUTROPHILS # (AUTO) 9.1 K/uL (1.8-8.9); NEUTROPHILS % (AUTO) 80.8 % (43.0-81.0); PLATELET COUNT (AUTO) 466 K/uL (150-450); WHITE BLOOD COUNT (AUTO) 11.3 K/uL (4.3-11.0)
[2021-05-20 07:19] LABS: CALCIUM, SERUM 7.2 mg/dL (8.5-10.1); CREATININE 6.6 mg/dL (0.6-1.3); MAGNESIUM 2.2 mg/dL (1.8-2.4)
--- NOTE | 2021-05-20 07:30 | NUR ---
RN OPENING NOTES RECEIVED PATIENT IN BED. ALERT VERBALLY RESPONSIVE. NOT IN DISTRESS NO COMPLAINTS OF PAIN NOTED. IV SITE RIGHT UPPER MIDLINE PATENT AND INTACT. RIGHT FEMORAL CATH NO BLEEDING NOTED. WITH FC PATENT AND INTACT DRAINING TO YELLOW COLORED URINE. BED TO LOWEST POSITION AND LOCKED. CALL LIGHT WITHIN REACH.
[2021-05-20 07:51] LABS: PHOSPHORUS 8.2 mg/dL (2.5-4.9)
[2021-05-20 08:00] VITALS: BP 160/90
[2021-05-20] MEDS: CEFAZOLIN 1 GM in IV D5W 50 ML IV SCH (08:32)
[2021-05-20] MEDS: NICOTINE PATCH (21MG) 21 MG PATCH.TD24 TD SCH (08:32)
[2021-05-20] MEDS: HEPARIN SODIUM, PORCINE 5000 UNITS/1 ML VIAL SQ SCH ×2 (08:34→20:36)
[2021-05-20] MEDS: HYDROGEL DRESSING 90 GM TUBE TP SCH (08:34)
[2021-05-20] MEDS: THERAHONEY GEL 1.5 OZ TUBE TP SCH (08:35)
[2021-05-20 16:00] VITALS: BP 169/107
--- NOTE | 2021-05-20 18:42 | NUR ---
RN CLOSING NOTES PATIENT IN BED, NOT IN DISTRESS, NO COMPLAINTS OF PAIN NOTED. HD DONE TODAY WITH 500CC OUTPUT. DRESSING CHANGED ON BILATERAL LOWER EXTREMITIES WET TO DRY DRESSING PER MD ORDER. BED TO LOWEST POSITION AND LOCKED. CALL LIGHT WITHIN REACH. WILL ENDORSE TO NIGHT NURSE RN ON DUTY.
--- NOTE | 2021-05-20 19:15 | NUR ---
RN NOTE RECEIVED PATIENT IN BED, AO X 3, IN NO ACUTE DISTRESS AT THIS TIME. SATURATION AT 95% ON ROOM AIR, HR IS 97. NOTED NATE MIDLINE, PATENT AND FLUSHING WELL, AND R FEMORAL HD CATH, NO S/S OF INFECTION. SHERMAN CATHETER CONNECTED TO URINE BAG IN PLACE, DRAINING TO A CLEAR TO CLOUDY, YELLOW OUTPUT. NOTED WOUND DRESSING AT R ARM, AND BLE DRY AND INTACT. SAFETY MEASURES IMPLEMENTED. PATIENT BED ALARM IS ON. HEAD OF BED ELEVATED. BED IS LOCKED, IN LOWEST POSITION AND SIDE RAILS UP. CALL LIGHT WITHIN REACH OF THE PATIENT. WILL CONTINUE TO MONITOR AND REASSESS FOR ANY CHANGES.
[2021-05-20] MEDS: ONDANSETRON HCL/PF 4 MG/2 ML VIAL IVP PRN (20:35)
--- NOTE | 2021-05-20 22:20 | NUR ---
RN NOTE PATIENT AGITATED, STARTED TRYING TO GET UP SAYING HE WANTS TO GO HOME, HOWEVER, APPEARS TOO WEAK TO STAND UP. PRN ATIVAN 1MG ADMINISTERED ORDERED. PATIENT GIVEN SOMETHING TO READ FOR DIVERSION, PER PATIENT REQUEST. MORTGAGE OPERATIONS MANAGER SCOTT SINGLETON
[2021-05-20] MEDS: LORAZEPAM INJ 2 MG/ML VIAL IV PRN (22:21)
[2021-05-21] VITALS: BP 169/107
[2021-05-21] MEDS: LORAZEPAM INJ 2 MG/ML VIAL IV PRN ×2 (03:14→21:35)
[2021-05-21 07:10] LABS: BASOPHILS # (AUTO) 0.1 K/uL (0.0-0.2); BASOPHILS % (AUTO) 0.6 % (0.0-2.0); EOSINOPHILS % (AUTO) 1.3 % (0.0-6.0); HEMATOCRIT 26 % (39-51); HEMOGLOBIN 8.4 g/dL (13.5-17.5); LYMPHOCYTES % (AUTO) 6.5 % (20.0-44.0); MEAN CORPUSCULAR HGB CONC 33 g/dl (31.0-36.0); MEAN CORPUSCULAR VOLUME 84 fL (80-96); MONOCYTES % (AUTO) 6.4 % (2.0-12.0); NEUTROPHILS # (AUTO) 12.8 K/uL (1.8-8.9); NEUTROPHILS % (AUTO) 85.2 % (43.0-81.0); PLATELET COUNT (AUTO) 406 K/uL (150-450); RED BLOOD CELL COUNT(AUTO) 3.07 MIL/uL (4.5-6.0)
--- NOTE | 2021-05-21 07:22 | NUR ---
RN OPENING NOTES RECEIVED PATIENT IN BED SLEEPING. VERBALLY RESPONSIVE. NO S/S OF DISTRESS NO COMPLAINTS OF PAIN NOTED. IV SITE RIGHT UPPER MIDLINE PATENT AND INTACT. RIGHT FEMORAL CATH NO BLEEDING NOTED. WITH FC PATENT AND INTACT DRAINING TO YELLOW COLORED URINE. ALL SAFETY MEASURES IN PLACE, BED TO LOWEST POSITION AND LOCKED. CALL LIGHT WITHIN REACH. WILL CONTINUE TO MONITOR THROUGHOUT SHIFT.
[2021-05-21 07:29] LABS: CALCIUM, SERUM 7.2 mg/dL (8.5-10.1); CREATININE 5.6 mg/dL (0.6-1.3); MAGNESIUM 2.2 mg/dL (1.8-2.4); PHOSPHORUS 7.6 mg/dL (2.5-4.9); POTASSIUM 4.3 mmol/L (3.5-5.1)
--- NOTE | 2021-05-21 07:55 | NUR ---
RN OPENING NOTES RECEIVED REPORT FROM ARLINE FINE FOR AZALEA. RECEIVED PATIENT IN BED SLEEPING, EASILY AROUSABLE. PATIENT ALERT/ORIENTED X2-3 NO S/S OF DISTRESS NO COMPLAINTS OF PAIN NOTED. IV SITE RIGHT UPPER MIDLINE PATENT AND INTACT AND FLUSHED WELL. RIGHT FEMORAL CATH NO BLEEDING NOTED. WITH FC PATENT AND INTACT DRAINING TO YELLOW COLORED URINE. ALL APPLICABLE ISOLATION PRECAUTIONS IN PLACE. ALL SAFETY MEASURES IN PLACE, HOB ELEVATED BED TO LOWEST POSITION AND LOCKED. CALL LIGHT WITHIN REACH. WILL CONTINUE TO MONITOR THROUGHOUT SHIFT.
[2021-05-21 08:00] VITALS: BP 128/78
[2021-05-21] MEDS: HEPARIN SODIUM, PORCINE 5000 UNITS/1 ML VIAL SQ SCH ×2 (09:25→21:34)
[2021-05-21] MEDS: HYDROGEL DRESSING 90 GM TUBE TP SCH (09:25)
[2021-05-21] MEDS: CEFAZOLIN 1 GM in IV D5W 50 ML IV SCH (09:25)
[2021-05-21] MEDS: NICOTINE PATCH (21MG) 21 MG PATCH.TD24 TD SCH (09:25)
[2021-05-21] MEDS: THERAHONEY GEL 1.5 OZ TUBE TP SCH (09:26)
[2021-05-21 16:00] VITALS: BP 144/91
--- NOTE | 2021-05-21 18:48 | NUR ---
RN CLOSING NOTES PATIENT REMAINS IN STABLE CONDITION THROUGHOUT SHIFT. PATIENT IN BED AWAKE, ALERT/ORIENTED 2-3. NO S/S OF DISTRESS NO COMPLAINTS OF PAIN NOTED. IV SITE RIGHT UPPER MIDLINE PATENT AND INTACT AND FLUSHED WELL. RIGHT FEMORAL CATH NO BLEEDING NOTED. ALL DUE MEDS GIVEN ORDERED. KEPT PATIENT CLEAN DRY AND COMFORTABLE. WOUND CARE RENDERED, TOLERATED WELL. ALL NEEDS ATTENDED. ALL APPLICABLE ISOLATION PRECAUTIONS IN PLACE. ALL SAFETY MEASURES IN PLACE, HOB ELEVATED BED TO LOWEST POSITION AND LOCKED. CALL LIGHT WITHIN REACH. WILL ENDORSE TO ONCOMING NURSE FOR CONTINUITY OF CARE.
--- NOTE | 2021-05-21 19:40 | NUR ---
RN OPENING NOTES RECEIVED PATIENT IN BED AWAKE, ALERT/ORIENTED X2-3 AND VERBALLY RESPONSIVE. ON ROOM AIR AND PT TOLERATED WELL. IV ACCESS ON RIGHT UPPER MIDLINE INTACT AND PATENT. RIGHT FEMORAL HD CATH ON PLACE. NO BLEEDING NOTED. SHERMAN CATHETER INTACT AND PATENT DRAINING TEA COLORED URINE. NO C/O PAIN OR DISCOMFORT. NO ACUTE DISTRESS. ISOLATION PRECAUTIONS IN PLACE. ALL SAFETY MEASURES IN PLACE, HOB ELEVATED. BED TO LOWEST POSITION AND LOCKED. PLACE CALL LIGHT WITHIN REACH. WILL CONTINUE TO MONITOR.
[2021-05-21 20:00] VITALS: BP 163/87
[2021-05-21] MEDS: AMLODIPINE BESYLATE 5 MG TABLET PO SCH (21:31)
--- NOTE | 2021-05-21 21:45 | NUR ---
RN NOTES: PT'S BLOOD PRESSURE 163/87, PULSE- 103. NOTIFIED DR. MATTHEWS, ORDER- NORVASC 5MG TAB DAILY. GIVEN AND PT TOLERATED WELL. ATIVAN 0.5ML GIVEN FOR C/O ANXIETY/RESTLESSNESS. WILL CONTINUE TO MONITOR
[2021-05-22 04:00] VITALS: BP 165/108
--- NOTE | 2021-05-22 06:40 | NUR ---
RN CLOSING NOTES PATIENT IN BED AWAKE, ALERT/ORIENTED X2-3 AND VERBALLY RESPONSIVE. ON ROOM AIR, O2 SAT 94% AND PT TOLERATED WELL. IV ACCESS ON RIGHT UPPER MIDLINE INTACT AND PATENT. RIGHT FEMORAL HD CATH ON PLACE. NO BLEEDING NOTED. SHERMAN CATHETER INTACT AND PATENT DRAINING TEA COLORED URINE. NO C/O PAIN OR DISCOMFORT. NO ACUTE DISTRESS. ALL DUE MEDS GIVEN ORDERED. ISOLATION PRECAUTIONS IN PLACE. ALL SAFETY MEASURES IN PLACE, HOB ELEVATED. BED TO LOWEST POSITION AND LOCKED. PLACE CALL LIGHT WITHIN REACH.WILL ENDORSE TO MORNING SHIFT NURSE
[2021-05-22 07:01] LABS: BASOPHILS # (AUTO) 0.1 K/uL (0.0-0.2); BASOPHILS % (AUTO) 0.7 % (0.0-2.0); EOSINOPHILS % (AUTO) 1.9 % (0.0-6.0); HEMATOCRIT 28 % (39-51); HEMOGLOBIN 9.2 g/dL (13.5-17.5); LYMPHOCYTES # (AUTO) 1.2 K/uL (0.8-4.8); MEAN CORPUSCULAR HGB CONC 33 g/dl (31.0-36.0); MEAN CORPUSCULAR VOLUME 84 fL (80-96); MONOCYTES # (AUTO) 0.9 K/uL (0.1-1.30); MONOCYTES % (AUTO) 6.2 % (2.0-12.0); NEUTROPHILS # (AUTO) 11.9 K/uL (1.8-8.9); NEUTROPHILS % (AUTO) 83.2 % (43.0-81.0); PLATELET COUNT (AUTO) 384 K/uL (150-450); RED BLOOD CELL COUNT(AUTO) 3.36 MIL/uL (4.5-6.0); WHITE BLOOD COUNT (AUTO) 14.4 K/uL (4.3-11.0)
[2021-05-22 07:20] LABS: CALCIUM, SERUM 7.6 mg/dL (8.5-10.1); CREATININE 6.6 mg/dL (0.6-1.3); MAGNESIUM 2.3 mg/dL (1.8-2.4); POTASSIUM 4.6 mmol/L (3.5-5.1)
[2021-05-22 07:27] LABS: PHOSPHORUS 8.7 mg/dL (2.5-4.9)
--- NOTE | 2021-05-22 07:31 | NUR ---
RN NOTE RECEIVED CRITICAL LAB RESULT FOR PHOSPHORUS OF 8.7. INFORMED CHARGED NURSE.
[2021-05-22] MEDS: HYDROGEL DRESSING 90 GM TUBE TP SCH (09:33)
[2021-05-22] MEDS: THERAHONEY GEL 1.5 OZ TUBE TP SCH (09:34)
[2021-05-22] MEDS: CEFAZOLIN 1 GM in IV D5W 50 ML IV SCH (09:38)
[2021-05-22] MEDS: NICOTINE PATCH (21MG) 21 MG PATCH.TD24 TD SCH (09:38)
[2021-05-22] MEDS: AMLODIPINE BESYLATE 5 MG TABLET PO SCH (09:39)
[2021-05-22] MEDS: HEPARIN SODIUM, PORCINE 5000 UNITS/1 ML VIAL SQ SCH (09:54)
[2021-05-22] MEDS: PROSOURCE / PROSTAT (PYXIS) 30 ML UDC PO SCH ×2 (09:56→17:48)
[2021-05-22] MEDS: LORAZEPAM INJ 2 MG/ML VIAL IV PRN ×2 (10:13→21:53)
[2021-05-22 16:00] VITALS: BP 155/89
--- NOTE | 2021-05-22 18:48 | NUR ---
RN CLOSING NOTES PATIENT IN BED AWAKE, ALERT/ORIENTED X 3 AND VERBALLY RESPONSIVE. ON ROOM AIR AND PT TOLERATED WELL. IV ACCESS ON RIGHT UPPER MIDLINE INTACT AND PATENT. RIGHT FEMORAL HD CATH ON PLACE. NO BLEEDING NOTED. SHERMAN CATHETER INTACT AND PATENT DRAINING TEA COLORED URINE. NO C/O PAIN OR DISCOMFORT. NO ACUTE DISTRESS. ISOLATION PRECAUTIONS IN PLACE. ALL SAFETY MEASURES IN PLACE, HOB ELEVATED. BED TO LOWEST POSITION AND LOCKED. PLACE CALL LIGHT WITHIN REACH.WILL ENDORSE TO NIGHT NURSE FOR AZALEA.
--- NOTE | 2021-05-22 19:30 | NUR ---
RN OPENING NOTES RECEIVED CARE OF PATIENT FROM AM NURSE WHILE PATIENT IN BED, AWAKE, EATING DINNER, A/O X3, ABLE TO MAKE NEEDS KNOWN. PATIENT ON ROOM AIR, O2 SAT 97%, NO SOB NOTED. IV ACCESS ON RIGHT UPPER MIDLINE INTACT AND PATENT, RIGHT FEMORAL HD CATH IN PLACE, NO COMPLICATIONS NOTED. SHERMAN CATHETER INTACT AND PATENT DRAINING TEA COLORED URINE. NO C/O PAIN OR DISCOMFORT, NO SIGNIFICANT FINDINGS UPON INITIAL NURSING ASSESSMENTS. NO ACUTE DISTRESS. ISOLATION PRECAUTIONS IN PLACE. ALL SAFETY MEASURES IN PLACE, HOB ELEVATED. BED TO LOWEST POSITION AND LOCKED, CALL LIGHT WITHIN REACH. WILL CONTINUE TO MONITOR PATIENT.
[2021-05-22] MEDS: MORPHINE SULFATE INJ 2 MG/ML DISP.SYRIN IV PRN (22:30)
[2021-05-23] VITALS: BP 147/88
[2021-05-23 06:49] LABS: BASOPHILS # (AUTO) 0.1 K/uL (0.0-0.2); BASOPHILS % (AUTO) 0.7 % (0.0-2.0); EOSINOPHILS % (AUTO) 2.2 % (0.0-6.0); HEMATOCRIT 24 % (39-51); HEMOGLOBIN 7.9 g/dL (13.5-17.5); LYMPHOCYTES % (AUTO) 6.6 % (20.0-44.0); MEAN CORPUSCULAR HGB CONC 33 g/dl (31.0-36.0); MEAN CORPUSCULAR VOLUME 83 fL (80-96); MONOCYTES # (AUTO) 0.8 K/uL (0.1-1.30); MONOCYTES % (AUTO) 5.3 % (2.0-12.0); NEUTROPHILS % (AUTO) 85.2 % (43.0-81.0); PLATELET COUNT (AUTO) 352 K/uL (150-450); RED BLOOD CELL COUNT(AUTO) 2.91 MIL/uL (4.5-6.0); WHITE BLOOD COUNT (AUTO) 15.3 K/uL (4.3-11.0)
--- NOTE | 2021-05-23 07:12 | NUR ---
RN CLOSING NOTES WILL ENDORSE CARE OF PATIENT TO AM NURSE WHILE PATIENT IN BED, ASLEEP, WAKES UP TO NAME. PATIENT IS A/O X4, HARD OF HEARING. ALL PATIENT NEEDS MET THROUGHOUT SHIFT. PATIENT COMPLAINED OF PAIN, MANAGED WITH PRN MORPHINE. ALL DUE MEDS GIVEN. ALL PATIENT NEEDS ATTENDED TO. ALL SAFETY MEASURES IN PLACE. WILL ENDORSE TO AM NURSE FOR AZALEA.
--- NOTE | 2021-05-23 07:30 | NUR ---
RN OPENING NOTE RECEIVED PATIENT IN BED, AWAKE. A/O X3, ABLE TO MAKE NEEDS KNOWN. PATIENT ON ROOM AIR, O2 SAT 94%, NO SOB NOTED. IV ACCESS ON RIGHT UPPER MIDLINE INTACT AND PATENT, RIGHT FEMORAL HD CATH IN PLACE, NO COMPLICATIONS NOTED. SHERMAN CATHETER INTACT AND PATENT DRAINING TEA COLORED URINE. NO C/O PAIN OR DISCOMFORT. NO ACUTE DISTRESS. ISOLATION PRECAUTIONS IN PLACE. ALL SAFETY MEASURES IN PLACE, HOB ELEVATED. BED TO LOWEST POSITION AND LOCKED, CALL LIGHT WITHIN REACH. WILL CONTINUE TO MONITOR PATIENT.
[2021-05-23 08:00] VITALS: BP 166/85
[2021-05-23] MEDS: SEVELAMER CARBONATE 800 MG TABLET PO SCH ×3 (08:09→17:01)
[2021-05-23] MEDS: NICOTINE PATCH (21MG) 21 MG PATCH.TD24 TD SCH (09:24)
[2021-05-23] MEDS: HYDROGEL DRESSING 90 GM TUBE TP SCH (09:24)
[2021-05-23] MEDS: CEFAZOLIN 1 GM in IV D5W 50 ML IV SCH (09:24)
[2021-05-23] MEDS: THERAHONEY GEL 1.5 OZ TUBE TP SCH (09:25)
[2021-05-23] MEDS: AMLODIPINE BESYLATE 5 MG TABLET PO SCH (09:27)
[2021-05-23] MEDS: PROSOURCE / PROSTAT (PYXIS) 30 ML UDC PO SCH ×2 (09:27→16:37)
[2021-05-23] MEDS: MORPHINE SULFATE INJ 2 MG/ML DISP.SYRIN IV PRN ×2 (09:43→14:37)
[2021-05-23 12:27] LABS: CALCIUM, SERUM 7.6 mg/dL (8.5-10.1); POTASSIUM 4.3 mmol/L (3.5-5.1)
[2021-05-23] MEDS: LORAZEPAM INJ 2 MG/ML VIAL IV PRN ×2 (12:32→20:50)
[2021-05-23 16:00] VITALS: BP 178/96
[2021-05-23] MEDS: ACETAMINOPHEN 325 MG TABLET PO PRN (16:57)
--- NOTE | 2021-05-23 18:36 | NUR ---
RN CLOSING NOTE PATIENT IN BED, AWAKE. A/O X3, ABLE TO MAKE NEEDS KNOWN. PATIENT ON ROOM AIR, O2 SAT 94%, NO SOB NOTED. IV ACCESS ON RIGHT UPPER MIDLINE INTACT AND PATENT, RIGHT FEMORAL HD CATH IN PLACE, NO COMPLICATIONS NOTED. SHERMAN CATHETER INTACT AND PATENT DRAINING TEA COLORED URINE. NO C/O PAIN OR DISCOMFORT. NO ACUTE DISTRESS. ISOLATION PRECAUTIONS IN PLACE. ALL DUE MEDS GIVEN ORDERED. TREATMENTS DONE. DIALYSIS DONE TODAY . 1000 ML OUTPUT.ALL SAFETY MEASURES IN PLACE, HOB ELEVATED. BED TO LOWEST POSITION AND LOCKED, CALL LIGHT WITHIN REACH. WILL ENDORSE FOR AZALEA.
--- NOTE | 2021-05-23 19:15 | NUR ---
RN OPENING NOTES RECEIVED PATIENT ON BED, AWAKE, A/O X 3-4 ABLE TO MAKE NEEDS KNOWN , RESPIRATORY EVEN AND UNLABORED, NO SOB NOTED, NOT IN DISTRESS. REMAIN AFEBRILE. ON ROOM AIR SATING AT 98%. NOTED WITH NATE MIDLINE INTACT, PATENT AND FLUSHED WITH NS. NO INFILTRATION NOTED AT SITE. RIGHT FEMORAL CATHETER NO BLEEDING NOTED. SHERMAN CATHETER INPLACED AND DRAINING WELL BY GRAVITY. ALL SAFETY MEASURE PROVIDED, BED ON LOWEST POSITION, LOCKED. CONTINUE TO MONITOR.
[2021-05-23 20:00] VITALS: BP 157/82
[2021-05-24 04:00] VITALS: BP 156/90
--- NOTE | 2021-05-24 07:41 | NUR ---
RN CLOSING NOTES NO SIGNIFICANT CHANGES THROUGH OUT THE SHIFT , RESPIRATORY EVEN AND UNLABORED, NO SOB NOTED, NOT IN DISTRESS. REMAIN AFEBRILE. ON ROOM AIR SATING AT 98%. SHERMAN CATHETER INPLACED AND DRAINING WELL BY GRAVITY. ALL DUE MEDS GIVEN ORDERED. ALL SAFETY MEASURE PROVIDED, BED ON LOWEST POSITION, LOCKED. CONTINUE TO MONITOR.
[2021-05-24 08:00] LABS: CALCIUM, SERUM 7.5 mg/dL (8.5-10.1); CREATININE 5.3 mg/dL (0.6-1.3); POTASSIUM 3.8 mmol/L (3.5-5.1)
--- NOTE | 2021-05-24 08:04 | NUR ---
RN OPENING NOTES PATIENT AWAKE IN BED RESTING, A/O X 3-4. NO S/S OF PAIN NOTED AT THIS TIME. PATIENT ON ROOM AIR, NO DISTRESS OR SHORTNESS OF BREATH. IV ACCESS NATE MIDLINE INTACT, PATENT AND FLUSHING WELL. FALL AND SAFETY MEASURES IN PLACE, BED ALARM ON, BED IN LOW AND LOCK POSITION, CALL LIGHT AND TABLE WITHIN EASY REACH, SIDE RAILS UP X2. WILL CONTINUE TO MONITOR.
[2021-05-24 08:18] LABS: BASOPHILS # (AUTO) 0.1 K/uL (0.0-0.2); BASOPHILS % (AUTO) 0.7 % (0.0-2.0); EOSINOPHILS % (AUTO) 2.8 % (0.0-6.0); HEMATOCRIT 26 % (39-51); HEMOGLOBIN 8.4 g/dL (13.5-17.5); LYMPHOCYTES % (AUTO) 6.5 % (20.0-44.0); MEAN CORPUSCULAR HGB CONC 32 g/dl (31.0-36.0); MEAN CORPUSCULAR VOLUME 84 fL (80-96); MONOCYTES # (AUTO) 0.9 K/uL (0.1-1.30); NEUTROPHILS # (AUTO) 13.1 K/uL (1.8-8.9); PLATELET COUNT (AUTO) 361 K/uL (150-450); RED BLOOD CELL COUNT(AUTO) 3.09 MIL/uL (4.5-6.0); WHITE BLOOD COUNT (AUTO) 15.6 K/uL (4.3-11.0)
[2021-05-24] MEDS: SEVELAMER CARBONATE 800 MG TABLET PO SCH ×3 (10:21→17:33)
[2021-05-24] MEDS: NICOTINE PATCH (21MG) 21 MG PATCH.TD24 TD SCH (10:21)
[2021-05-24] MEDS: THERAHONEY GEL 1.5 OZ TUBE TP SCH (10:23)
[2021-05-24] MEDS: HYDROGEL DRESSING 90 GM TUBE TP SCH (10:23)
[2021-05-24] MEDS: PROSOURCE / PROSTAT (PYXIS) 30 ML UDC PO SCH ×2 (10:24→17:32)
[2021-05-24] MEDS: AMLODIPINE BESYLATE 5 MG TABLET PO SCH (10:26)
[2021-05-24] MEDS: CEFAZOLIN 1 GM in IV D5W 50 ML IV SCH (10:26)
[2021-05-24] MEDS: ONDANSETRON HCL/PF 4 MG/2 ML VIAL IVP PRN (15:12)
--- NOTE | 2021-05-24 15:55 | NUR ---
RN NOTE DR. VIDES CALLED AND ORDERED PATIENT TO BE NPO AFTER MIDNIGHT, CONSENT FOR TUNNELED DIALYSIS CATHETER PLACEMENT AND BMP FOR THE MORNING. PROCEDURE WILL BE TOMORROW MORNING AT 7AM. CHARGE NURSE AWARE.
[2021-05-24 16:00] VITALS: BP 137/83
[2021-05-24 16:56] LABS: CALCIUM, SERUM 7.1 mg/dL (8.5-10.1); CREATININE 5.4 mg/dL (0.6-1.3); POTASSIUM 3.7 mmol/L (3.5-5.1)
--- NOTE | 2021-05-24 18:58 | NUR ---
RN CLOSING NOTES PATIENT AWAKE IN BED RESTING, A/O X 3-4. NO S/S OF PAIN NOTED AT THIS TIME. PATIENT ON ROOM AIR, NO DISTRESS OR SHORTNESS OF BREATH. IV ACCESS NATE MIDLINE INTACT, PATENT AND FLUSHING WELL. PATIENT HAVE SHERMAN CATHETER, IN PLACE, DRAINING WELL, OUTPUT OF 650ML. FALL AND SAFETY MEASURES IN PLACE, BED ALARM ON, BED IN LOW AND LOCK POSITION, CALL LIGHT AND TABLE WITHIN EASY REACH, SIDE RAILS UP X2. WILL ENDORSE TO FRONT COUNTER ATTENDANT.
[2021-05-24 20:00] VITALS: BP 140/82
--- NOTE | 2021-05-24 20:00 | NUR ---
RN NOTE RECEIVED PT IN BED. ALERT AND ORIENTED X 4. WITH HARD OF HEARING. DENIES ANY SOB AT THIS TIME. PT WITH R FEMORAL CATH, INTACT, NO BLEEDING NOTED. MIDLINE ON NATE FLUSHES WELL. PT WITH SHERMAN CATH, NOTED WITH LIGHT RED COLORED URINE. PT AFEBRILE. PT FOR TUNNELED CATHETER PLACEMENT IN AM. INFORMED PT TO BE NPO AT MIDNIGHT. WOUND DRESSINGS CLEAN DRY AND INTACT. WILL CONTINUE TO MONITOR. ALL SAFETY MEASURES IN PLACE.
[2021-05-24] MEDS: MORPHINE SULFATE INJ 2 MG/ML DISP.SYRIN IV PRN (22:06)
--- NOTE | 2021-05-24 22:06 | NUR ---
RN NOTE PT SCREAMING FOR PAIN, COMPLAINED OF SEVERE ABDOMINAL PAIN. MORPHINE GIVEN ORDERED. WILL CONTINUE TO MONITOR.
--- NOTE | 2021-05-24 22:40 | NUR ---
RN NOTE PT SLEEPING, AROUSES EASILY. PER PT PAIN IN BETTER.
--- NOTE | 2021-05-24 23:30 | NUR ---
RN NOTE PT O2 SAT AT 90 91 ON RA. DENIES ANY SOB. NO RESP DISTRESS NOTED. PUT ON O2 AT 2L VIA NC, NOW SATING AT 97%. WILL CONTINUE TO MONITOR.
--- NOTE | 2021-05-25 01:34 | NUR ---
RN NOTE PT WILL HAVE DIALYSIS CATH PLACEMENT THIS AM. OBTAINED LAB ORDERS FROM ENGINE HOUSE HELPER ANALI HERMAN FOR PRE OP.
[2021-05-25] MEDS: LORAZEPAM INJ 2 MG/ML VIAL IV PRN ×3 (01:43→20:00)
--- NOTE | 2021-05-25 01:45 | NUR ---
RN NOTE PT AGITATED, KEPT ON GETTING OUT FROM BED. ATIVAN GIVEN ORDERED. WILL CONTINUE TO MONITOR.
[2021-05-25 04:00] VITALS: BP 139/82
[2021-05-25 06:23] LABS: BASOPHILS # (AUTO) 0.1 K/uL (0.0-0.2); BASOPHILS % (AUTO) 0.8 % (0.0-2.0); EOSINOPHILS % (AUTO) 1.8 % (0.0-6.0); HEMATOCRIT 22 % (39-51); HEMOGLOBIN 7.2 g/dL (13.5-17.5); LYMPHOCYTES # (AUTO) 1.1 K/uL (0.8-4.8); LYMPHOCYTES % (AUTO) 8.5 % (20.0-44.0); MEAN CORPUSCULAR HGB CONC 33 g/dl (31.0-36.0); MEAN CORPUSCULAR VOLUME 84 fL (80-96); MONOCYTES # (AUTO) 0.9 K/uL (0.1-1.30); MONOCYTES % (AUTO) 6.5 % (2.0-12.0); NEUTROPHILS # (AUTO) 11.2 K/uL (1.8-8.9); NEUTROPHILS % (AUTO) 82.4 % (43.0-81.0); PLATELET COUNT (AUTO) 321 K/uL (150-450); WHITE BLOOD COUNT (AUTO) 13.5 K/uL (4.3-11.0)
[2021-05-25] MEDS ORDERED: LIDOCAINE 1% INJ 50 ML MDV IJ ONE (06:42)
[2021-05-25] MEDS ORDERED: IOHEXOL 240MG/ML 0 ML IV ONE (06:42)
[2021-05-25] MEDS ORDERED: HEPARIN SODIUM, PORCINE 1,000 UNIT/ML VIAL ONE (06:42)
[2021-05-25] MEDS ORDERED: FENTANYL PF 100MCG/2ML AMPUL ONE (06:52)
--- NOTE | 2021-05-25 06:52 | NUR ---
RN NOTE PT SLEEPING, AROUSES EASILY. NO CHANGES IN LOC NOTED. PT CONTINUE ON O2 AT 2L SATING 98 %. DENIES SOB OR PAIN AT THIS TIME. SHERMAN REMAIN IN PLACE, INDWELLING WELL WITH STILL LIGHT RED URINE OUTPUT. AFEBRILE. IV PATENT AND INTACT. PT AWAITING FOR PERM CATH PLACEMENT. ALL SAFETY MEASURES MAINTAINED.
[2021-05-25 07:01] LABS: BILIRUBIN,TOTAL 0.2 mg/dL (0.2-1.0); CALCIUM, SERUM 7.3 mg/dL (8.5-10.1); CREATININE 5.5 mg/dL (0.6-1.3); POTASSIUM 3.4 mmol/L (3.5-5.1); TOTAL PROTEIN, SERUM 6.2 g/dL (6.4-8.2)
--- NOTE | 2021-05-25 07:15 | NUR ---
RN NOTE PATIENT PICKED UP BY MOTOR EQUIPMENT COMMANDING OFFICER'S TO HAVE PERMACATH PLACEMENT ON R UPPER CHEST. PATIENT STABLE AT TIME OF LEAVING UNIT.
[2021-05-25 07:17] LABS: ALBUMIN 1.2 g/dL (3.4-5.0)
--- NOTE | 2021-05-25 07:30 | NUR ---
RN OPENING NOTE PATIENT ASLEEP IN BED RESTING, A/O X4. NO S/S OF PAIN NOTED AT THIS TIME. PATIENT ON ROOM AIR, NO DISTRESS OR SHORTNESS OF BREATH. IV ACCESS LAC #20G INTACT, PATENT AND FLUSHING WELL. PATIENT HAS SHERMAN CATHETER INTACT AND PATENT DRAINING CLEAR LIGHT PINK URINE. FALL AND SAFETY MEASURES IN PLACE, BED ALARM ON, BED IN LOW AND LOCK POSITION, CALL LIGHT AND TABLE WITHIN EASY REACH, SIDE RAILS UP X2. WILL CONTINUE TO MONITOR.
[2021-05-25 08:00] VITALS: BP 136/78
--- NOTE | 2021-05-25 08:49 | NUR ---
RN NOTE PATIENT RETURNED FROM HAVING R UPPER CHEST PERMACATH PLACEMENT AND R FEMORAL CATH REMOVALE. NO SIGN OF BLEEDING OR HEMORRHAGE ON BANDAGES AND PATIENT HAS NO S/SX OF DISTRESS. PATIENT V/S STABLE 136/78 HR82 ON 2LPM NC O2SAT 98%. PATIENT STABLE. WILL CHECK BANDAGES Q15MIN X 2HRS AND IMPLEMENT NEW MD ORDERS. ALL SAFETY MEASURES IN PLACE. BED IN LOW POSITION, WHEELS LOCKED AND CALL LIGHT WITHIN REACH. WILL CONTINUE TO MONITOR.
[2021-05-25] MEDS: AMLODIPINE BESYLATE 5 MG TABLET PO SCH (09:56)
[2021-05-25] MEDS: SEVELAMER CARBONATE 800 MG TABLET PO SCH ×3 (09:56→17:10)
[2021-05-25] MEDS: HYDROGEL DRESSING 90 GM TUBE TP SCH (09:56)
[2021-05-25] MEDS: NICOTINE PATCH (21MG) 21 MG PATCH.TD24 TD SCH (09:56)
[2021-05-25] MEDS: THERAHONEY GEL 1.5 OZ TUBE TP SCH (09:57)
[2021-05-25] MEDS: PROSOURCE / PROSTAT (PYXIS) 30 ML UDC PO SCH ×2 (09:58→16:43)
--- NOTE | 2021-05-25 12:33 | NUR ---
PATIENT ORLIN FOR AFTERNOON (1300) HELD. PATIENT IS HAVING HEMODIALYSIS CURRENTLY. WILL EVALUATE FOLLOWING HD.
[2021-05-25] MEDS ORDERED: ANCEF 1 GM/50 ML D5W IV SCH ×2 (15:00)
[2021-05-25 16:00] VITALS: BP 150/92
--- NOTE | 2021-05-25 18:50 | NUR ---
RN CLOSING NOTE PATIENT REMAINED STABLE THROUGHOUT SHIFT. PATIENT ASLEEP IN BED RESTING, A/O X4. NO S/S OF PAIN NOTED AT THIS TIME. PATIENT ON ROOM AIR, NO DISTRESS OR SHORTNESS OF BREATH. IV ACCESS LAC #20G INTACT, PATENT AND FLUSHING WELL. PATIENT ALSO HAS RU CHEST PERMACATH PATENT AND INTACT. PATIENT HAD HD TODAY WITH 2L REMOVED. PATIENT HAS SHERMAN CATHETER INTACT AND PATENT DRAINING CLEAR YELLOW URINE. FALL AND SAFETY MEASURES IN PLACE, BED ALARM ON, BED IN LOW AND LOCK POSITION, CALL LIGHT AND TABLE WITHIN EASY REACH, SIDE RAILS UP X2. WILL ENDORSE TO BLACK OFF WORKER RN.
[2021-05-25 20:00] VITALS: BP 153/67
[2021-05-26] MEDS: LORAZEPAM INJ 2 MG/ML VIAL IV PRN ×5 (03:42→23:16)
[2021-05-26 04:00] VITALS: BP 149/76
--- NOTE | 2021-05-26 05:33 | NUR ---
RN notes Resting comfortably in bed with no distress noted. breathing even and unlabored. On 5lpm O2 via nasal cannula tolerating well. Alert and oriented with confusion. Garbled words. Ativan 1mg x2 for anxiety m/b continuous shouting and inability to keep still. No complaint of pain or discomfort. Vital signs wnl. No significant change of condition. Kept clean and dry. Will endorse to next shift for continuity of care.
--- NOTE | 2021-05-26 07:33 | NUR ---
RN OPENING NOTES Patient seen comfortably lying in bed, no apparent distress noted, respirations even and unlabored, no SOB, denies any pain or discomfort at this time, no grimacing. Call light left within reach, safety precautions in place, brakes locked, side rails up X 2, will monitor closely for any changes.
[2021-05-26 08:00] VITALS: BP 150/90
[2021-05-26] MEDS ORDERED: SEVE800T7 PO (08:54)
[2021-05-26] MEDS ORDERED: AMLO-212 PO (08:54)
[2021-05-26] MEDS: SEVELAMER CARBONATE 800 MG TABLET PO SCH ×3 (09:08→17:12)
[2021-05-26] MEDS: AMLODIPINE BESYLATE 5 MG TABLET PO SCH (09:09)
[2021-05-26] MEDS: NICOTINE PATCH (21MG) 21 MG PATCH.TD24 TD SCH (09:09)
[2021-05-26] MEDS: PROSOURCE / PROSTAT (PYXIS) 30 ML UDC PO SCH ×2 (09:11→17:12)
[2021-05-26] MEDS: HYDROGEL DRESSING 90 GM TUBE TP SCH (09:30)
[2021-05-26] MEDS: THERAHONEY GEL 1.5 OZ TUBE TP SCH (10:57)
[2021-05-26] MEDS: CEFAZOLIN 1 GM in IV D5W 50 ML IV SCH (10:57)
[2021-05-26] MEDS: MORPHINE SULFATE INJ 2 MG/ML DISP.SYRIN IV PRN (10:58)
[2021-05-26 12:00] VITALS: BP 134/70
[2021-05-26 16:00] VITALS: BP 126/74
--- NOTE | 2021-05-26 18:25 | NUR ---
RN CLOSING NOTES Patient lying in bed, no shortness of breath, respirations even and unlabored, no apparent distress noted, no dizziness, no palpitations, no chest pain during shift. All due medications given per MD order, tolerating well. Pain and anti-anxiety medication given per MD order as needed when non pharmacological measures ineffective, noted with help. Patient S/P dialysis today with 2L output, tolerated well, no s/s of fluid overload, no shortness of breath, dialysis site on right femoral and right upper chest permacath free from bleeding, covered with dry dressing, no unusual odor, no drainage noted. Aspiration precautions observed at all times, kept head of bed elevated, all needs anticipated, kept clean and dry, safety precautions in place, frequent repositioning and turning rendered, frequent visual checks done, side rails up X 2, brakes locked, call light left within reach, will endorse to next shift for continuity of care.
--- NOTE | 2021-05-26 19:00 | NUR ---
RN NOTE RECEIVED PATIENT IN BED, AO X 3, IN NO ACUTE DISTRESS AT THIS TIME. SATURATION AT 94% ON ROOM AIR, HR IS 94. NOTED NATE MIDLINE, PATENT AND FLUSHING WELL, R FEMORAL HD CATH AND PERMACATH AT R CHESTWALL, NO S/S OF INFECTION. SHERMAN CATHETER CONNECTED TO URINE BAG IN PLACE, DRAINING TO A CLEAR, YELLOW OUTPUT. NOTED WOUND DRESSING AT R ARM, AND BLE DRY AND INTACT. SAFETY MEASURES IMPLEMENTED. PATIENT BED ALARM IS ON. HEAD OF BED ELEVATED. BED IS LOCKED, IN LOWEST POSITION AND SIDE RAILS UP. CALL LIGHT WITHIN REACH OF THE PATIENT. WILL CONTINUE TO MONITOR AND REASSESS FOR ANY CHANGES.
[2021-05-26 20:00] VITALS: BP 154/92
[2021-05-26] MEDS ORDERED: CEFAZOLIN 1 GM in IV D5W 50 ML IV SCH (23:00)
[2021-05-27 04:00] VITALS: BP 158/93
--- NOTE | 2021-05-27 07:30 | NUR ---
RN OPENING NOTE PATIENT ASLEEP IN BED RESTING. NO S/S OF PAIN/DISTRESS NOTED AT THIS TIME. PATIENT ON ROOM AIR, NO DISTRESS OR SHORTNESS OF BREATH. IV ACCESS L HAND #20G INTACT, PATENT AND FLUSHING WELL. PATIENT HAS SHERMAN CATHETER INTACT AND PATENT DRAINING CLEAR YELLOW URINE. FALL AND SAFETY MEASURES IN PLACE, BED ALARM ON, BED IN LOW AND LOCK POSITION, CALL LIGHT AND TABLE WITHIN EASY REACH, SIDE RAILS UP X2. WILL CONTINUE TO MONITOR.
[2021-05-27] MEDS ORDERED: MORPHINE SULFATE INJ 4 MG/ML DISP.SYRIN IV PRN (08:00)
[2021-05-27] MEDS: SEVELAMER CARBONATE 800 MG TABLET PO SCH ×3 (08:57→17:02)
[2021-05-27] MEDS: NICOTINE PATCH (21MG) 21 MG PATCH.TD24 TD SCH (08:57)
[2021-05-27] MEDS: AMLODIPINE BESYLATE 5 MG TABLET PO SCH (08:57)
[2021-05-27] MEDS: LORAZEPAM INJ 2 MG/ML VIAL IV PRN ×3 (08:58→20:42)
[2021-05-27] MEDS: CEFAZOLIN 1 GM in IV D5W 50 ML IV SCH (08:58)
[2021-05-27] MEDS: HYDROGEL DRESSING 90 GM TUBE TP SCH (09:09)
[2021-05-27] MEDS: THERAHONEY GEL 1.5 OZ TUBE TP SCH (09:09)
[2021-05-27] MEDS: PROSOURCE / PROSTAT (PYXIS) 30 ML UDC PO SCH ×2 (09:13→17:03)
[2021-05-27 12:00] VITALS: BP 136/84
--- NOTE | 2021-05-27 18:39 | NUR ---
RN CLOSING NOTE PATIENT REMAINED STABLE THROUGHOUT SHIFT. PATIENT ASLEEP IN BED RESTING. NO S/S OF PAIN/DISTRESS NOTED AT THIS TIME. PATIENT IS A/0X3. PATIENT ON ROOM AIR, NO DISTRESS OR SHORTNESS OF BREATH TOLERATING WELL WITH O2SAT OF 96%. IV ACCESS L HAND #20G INTACT, PATENT AND FLUSHING WELL. PATIENT HAS RIGHT UPPER CHEST PERMACATH INTACT AND PATENT. PATIENT HAS SHERMAN CATHETER INTACT AND PATENT DRAINING CLEAR YUKI URINE. ALL NEEDS MET AND MEDS ADMINISTERED PER MD ORDER DURING SHIFT. FALL AND SAFETY MEASURES IN PLACE, BED ALARM ON, BED IN LOW AND LOCK POSITION, CALL LIGHT AND TABLE WITHIN EASY REACH, SIDE RAILS UP X2. WILL ENDORSE TO STONE PROCESSING MACHINE OPERATOR RN..
[2021-05-27 20:00] VITALS: BP 136/80
--- NOTE | 2021-05-27 20:00 | NUR ---
RN NOTES RECEIVED PATIENT AWAKE ON BED, A/OX3, F/C DRAINING LIGHT RED URINE, DENIES PAIN, NO SOB, CALL LIGHT WITHIN REACH, [id number], WILL CONTINUE TO MONITOR
--- NOTE | 2021-05-27 20:51 | NUR ---
RN NOTES COMPLAINED OF FEELING ANXIOUS- ATIVAN 1MG IV GIVEN ORDERED, V/S STABLE
[2021-05-28] MEDS: LORAZEPAM INJ 2 MG/ML VIAL IV PRN ×3 (00:27→10:58)
--- NOTE | 2021-05-28 00:43 | NUR ---
RN NOTES COMPLAINED OF FEELING ANXIOUS- ATIVAN 1 MG IV GIVEN ORDERED, V/S STABLE
[2021-05-28 04:00] VITALS: BP 159/94
--- NOTE | 2021-05-28 05:20 | NUR ---
RN NOTES PT WAS SCREAMING- ATIVAN 1MG IV GIVEN ORDERED, V/S STABLE
--- NOTE | 2021-05-28 06:34 | NUR ---
RN NOTES AWAKE, MORNING CARE RENDERED, NO SOB, [id number], PT. NEEDS ATTENDED
[2021-05-28 07:13] LABS: BASOPHILS # (AUTO) 0.1 K/uL (0.0-0.2); BASOPHILS % (AUTO) 0.8 % (0.0-2.0); EOSINOPHILS % (AUTO) 0.9 % (0.0-6.0); HEMATOCRIT 28 % (39-51); LYMPHOCYTES # (AUTO) 1.1 K/uL (0.8-4.8); LYMPHOCYTES % (AUTO) 7.1 % (20.0-44.0); MEAN CORPUSCULAR HGB CONC 32 g/dl (31.0-36.0); MEAN CORPUSCULAR VOLUME 84 fL (80-96); MONOCYTES # (AUTO) 1.4 K/uL (0.1-1.30); NEUTROPHILS % (AUTO) 82.2 % (43.0-81.0); PLATELET COUNT (AUTO) 366 K/uL (150-450); RED BLOOD CELL COUNT(AUTO) 3.32 MIL/uL (4.5-6.0); WHITE BLOOD COUNT (AUTO) 15.7 K/uL (4.3-11.0)
--- NOTE | 2021-05-28 07:30 | NUR ---
RN OPENING NOTE PATIENT ASLEEP IN BED RESTING. NO S/S OF PAIN/DISTRESS NOTED AT THIS TIME. PATIENT ON ROOM AIR, NO DISTRESS OR SHORTNESS OF BREATH. IV ACCESS L HAND #20G INTACT, PATENT AND FLUSHING WELL. PATIENT HAS SHERMAN CATHETER INTACT AND PATENT DRAINING CLEAR YUKI URINE.SAFETY MEASURES IN PLACE, BED ALARM ON, BED IN LOW AND LOCK POSITION, CALL LIGHT AND TABLE WITHIN EASY REACH, SIDE RAILS UP X2. WILL CONTINUE TO MONITOR.
[2021-05-28 08:22] LABS: CALCIUM, SERUM 7.8 mg/dL (8.5-10.1); CREATININE 4.2 mg/dL (0.6-1.3); POTASSIUM 3.6 mmol/L (3.5-5.1)
[2021-05-28] MEDS: AMLODIPINE BESYLATE 5 MG TABLET PO SCH (08:28)
[2021-05-28] MEDS: SEVELAMER CARBONATE 800 MG TABLET PO SCH ×3 (08:28→17:02)
[2021-05-28] MEDS: NICOTINE PATCH (21MG) 21 MG PATCH.TD24 TD SCH (08:28)
[2021-05-28] MEDS: CEFAZOLIN 1 GM in IV D5W 50 ML IV SCH (08:28)
[2021-05-28] MEDS: PROSOURCE / PROSTAT (PYXIS) 30 ML UDC PO SCH ×2 (08:28→17:22)
[2021-05-28] MEDS: HYDROGEL DRESSING 90 GM TUBE TP SCH (08:30)
[2021-05-28] MEDS: THERAHONEY GEL 1.5 OZ TUBE TP SCH (08:30)
[2021-05-28 12:00] VITALS: BP 138/81
[2021-05-28] MEDS: LORAZEPAM 1 MG TABLET PO PRN ×3 (12:41→21:02)
[2021-05-28] MEDS ORDERED: ONDANSETRON HCL 4 MG/5 ML SOLUTION PO PRN (13:00)
[2021-05-28] MEDS ORDERED: NEPRO VAN 237 ML CAN PO PRN (13:30)
--- NOTE | 2021-05-28 15:30 | NUR ---
RN NOTE ACUTE MEDICAL RESTRAINTS BILATERAL WRISTS ORDERED. PATIENT WAS ATTEMPTING TO PULL SHERMAN CATHETER OUT AND PULLED OUT R UPPER MIDLINE. PATIENT IS A DANGER TO HIMSELF/ WILL PROVIDE CIRCULATION/SAFETY CHECKS Q15MIN PER PROTOCOL.
[2021-05-28] MEDS ORDERED: HALOPERIDOL LACTATE INJ 5 MG/ML VIAL IM ONE (16:30)
--- NOTE | 2021-05-28 18:35 | NUR ---
RN CLOSING NOTE PATIENT REMAINED STABLE DURING SHIFT. PATIENT IN BED A/OX2-3. NO S/S OF PAIN/DISTRESS NOTED AT THIS TIME. PATIENT ON ROOM AIR, NO DISTRESS OR SHORTNESS OF BREATH. PATIENT HAS NO IV ACCESS AND ALL MEDS SWITCHED TO PO OK PER MD. PATIENT HAS SHERMAN CATHETER INTACT AND PATENT DRAINING CLEAR YUKI URINE. PATIENT IS RESTRAINED FOR HIS OWN SAFETY AFTER TRYING TO PULL OUT SHERMAN CATHETER. CIRCULATION CHECKS DONE Q15MIN PER PROTOCOL. SAFETY MEASURES IN PLACE, BED ALARM ON, BED IN LOW AND LOCK POSITION, CALL LIGHT AND TABLE WITHIN EASY REACH, SIDE RAILS UP X2. WILL ENDORSE TO OFFICE NURSE PRACTITIONER RN.
--- NOTE | 2021-05-28 19:15 | NUR ---
RN OPENING NOTES RECEIVED PATIENT ON BED, AWAKE, A/O X 2-3 WITH PERIOD OF CONFUSION , RESPIRATORY EVEN AND UNLABORED, NO SOB NOTED, NOT IN DISTRESS. REMAIN AFEBRILE. ON ROOM AIR SATING AT 96%. NOTED WITH RIGHT CHEST WALL PERMA CATH. SHERMAN CATHETER IN PLACED AND DRAINING WELL BY GRAVITY. ON BILATERAL WRIST SOFT RESTRAINT. ALL SAFETY MEASURE PROVIDED, BED ON LOWEST POSITION, LOCKED. CONTINUE TO MONITOR.
[2021-05-28 20:00] VITALS: BP 158/99
[2021-05-29] MEDS: LORAZEPAM 1 MG TABLET PO PRN ×3 (02:10→13:22)
[2021-05-29 04:00] VITALS: BP 154/90
--- NOTE | 2021-05-29 07:14 | NUR ---
RN CLOSING NOTES REMAIN STABLE THROUGH OUT THE SHIFT, RESPIRATORY EVEN AND UNLABORED, NO SOB NOTED, NOT IN DISTRESS. REMAIN AFEBRILE. ON ROOM AIR SATING AT 96%. SHERMAN CATHETER IN PLACED AND DRAINING WELL BY GRAVITY. STILL ON BILATERAL WRIST SOFT RESTRAINT. ALL SAFETY MEASURE PROVIDED, BED ON LOWEST POSITION, LOCKED. ENDORSED TO NEXT SHIFT.
--- NOTE | 2021-05-29 07:34 | NUR ---
RN OPENING NOTES RECEIVED PATIENT IN BED, A/O 2-3 WITH PERIODS OF CONFUSION. NO S/S OF ACUTE DISTRESS, NO CHEST DISCOMFORT. NO SOB NOTED AND BREATHING EXPANSION SYMMETRICAL. PATIENT IS ON ROOM AIR, O2 SAT IS 98%. PATIENT HAS RIGHT UPPER CHEST PERMA CATH AND IS INTACT. BILATERAL SOFT RESTRAINTS IN PLACE, PULSES PALPABLE, SKIN COLOR WNL. ALL SAFETY MEASURES IN PLACE, BED IN LOWEST POSITION AND LOCKED; TWO SIDE RAILS ARE UP. CALL LIGHT WITHIN REACH. WILL CONTINUE TO MONITOR.
[2021-05-29] MEDS: NICOTINE PATCH (21MG) 21 MG PATCH.TD24 TD SCH (08:26)
[2021-05-29] MEDS: AMLODIPINE BESYLATE 5 MG TABLET PO SCH (08:26)
[2021-05-29] MEDS: SEVELAMER CARBONATE 800 MG TABLET PO SCH ×2 (08:26→13:22)
[2021-05-29] MEDS: PROSOURCE / PROSTAT (PYXIS) 30 ML UDC PO SCH (08:27)
[2021-05-29] MEDS: HYDROGEL DRESSING 90 GM TUBE TP SCH (08:28)
[2021-05-29] MEDS: THERAHONEY GEL 1.5 OZ TUBE TP SCH (08:28)
[2021-05-29] MEDS ORDERED: HALOPERIDOL LACTATE INJ 5 MG/ML VIAL IM PRN (09:30)
[2021-05-29] MEDS: QUETIAPINE FUMARATE 25 MG TABLET PO SCH ×2 (11:30→13:22)
[2021-05-29 12:00] VITALS: BP 157/94
[2021-05-29] MEDS ORDERED: CEFAZOLIN 1 GM in IV D5W 50 ML IV SCH (12:30)
--- NOTE | 2021-05-29 15:11 | NUR ---
TOOL CLERK NOTES GAVE REPORT TO BABATUNDE DENTON FROM [facility] AND LELAND LAU FROM [facility]. PATIENT TRANSPORTED VIA AMBULANCE EN ROUTE TO [facility] FOR CONTINUITY OF CARE.
== END 2021-05-29 15:29 | DRG 710 ==
LOC: ER 12:10 → TRANSITION 15:00 → MEDSG1 15:41
PROVIDERS: ADMIT Hospitalist; ATTEND Internal Medicine
PROC: 05HB33Z Insertion of Infusion Device into Right Basilic Vein, Percutaneous Approach (ICD-10-PCS; 2021-05-16)
PROC: 06HY33Z Insertion of Infusion Device into Lower Vein, Percutaneous Approach (ICD-10-PCS; 2021-05-17)
PROC: 5A1D70Z Performance of Urinary Filtration, Intermittent, Less than 6 Hours Per Day (ICD-10-PCS; 2021-05-17)
PROC: 5A1D70Z Performance of Urinary Filtration, Intermittent, Less than 6 Hours Per Day (ICD-10-PCS; 2021-05-18)
PROC: 0KBS0ZZ Excision of Right Lower Leg Muscle, Open Approach (ICD-10-PCS; 2021-05-18)
PROC: 0KBT0ZZ Excision of Left Lower Leg Muscle, Open Approach (ICD-10-PCS; 2021-05-18)
PROC: 5A1D70Z Performance of Urinary Filtration, Intermittent, Less than 6 Hours Per Day (ICD-10-PCS; 2021-05-20)
PROC: 5A1D70Z Performance of Urinary Filtration, Intermittent, Less than 6 Hours Per Day (ICD-10-PCS; 2021-05-23)
PROC: 02HV33Z Insertion of Infusion Device into Superior Vena Cava, Percutaneous Approach (ICD-10-PCS; principal; 2021-05-25)
PROC: B518YZA Fluoroscopy of Superior Vena Cava using Other Contrast, Guidance (ICD-10-PCS; principal; 2021-05-25)
PROC: 0JH63XZ Insertion of Tunneled Vascular Access Device into Chest Subcutaneous Tissue and Fascia, Percutaneous Approach (ICD-10-PCS; principal; 2021-05-25)
PROC: 5A1D70Z Performance of Urinary Filtration, Intermittent, Less than 6 Hours Per Day (ICD-10-PCS; 2021-05-25)
PROC: 5A1D70Z Performance of Urinary Filtration, Intermittent, Less than 6 Hours Per Day (ICD-10-PCS; 2021-05-26)
PROC: 05HB33Z Insertion of Infusion Device into Right Basilic Vein, Percutaneous Approach (ICD-10-PCS; 2021-05-29)
DX: A41.9 Sepsis, unspecified organism (principal); N17.0 Acute kidney failure with tubular necrosis; U07.1 COVID-19; L89.153 Pressure ulcer of sacral region, stage 3; I77.2 Rupture of artery; R18.8 Other ascites; E11.22 Type 2 diabetes mellitus with diabetic chronic kidney disease; E83.39 Other disorders of phosphorus metabolism; E83.51 Hypocalcemia; J90 Pleural effusion, not elsewhere classified; M86.18 Other acute osteomyelitis, other site; L03.115 Cellulitis of right lower limb; E87.1 Hypo-osmolality and hyponatremia; E11.51 Type 2 diabetes mellitus with diabetic peripheral angiopathy without gangrene; D64.9 Anemia, unspecified; F01.50 Vascular dementia, unspecified severity, without behavioral disturbance, psychotic disturbance, mood disturbance, and anxiety; F06.8 Other specified mental disorders due to known physiological condition; D75.839 Thrombocytosis, unspecified; E87.5 Hyperkalemia; N39.0 Urinary tract infection, site not specified; Z20.822 Contact with and (suspected) exposure to COVID-19; M20.41 Other hammer toe(s) (acquired), right foot; M20.42 Other hammer toe(s) (acquired), left foot; E86.1 Hypovolemia; E88.09 Other disorders of plasma-protein metabolism, not elsewhere classified; F11.10 Opioid abuse, uncomplicated; F15.10 Other stimulant abuse, uncomplicated; F17.210 Nicotine dependence, cigarettes, uncomplicated; H91.90 Unspecified hearing loss, unspecified ear; J44.9 Chronic obstructive pulmonary disease, unspecified; K74.60 Unspecified cirrhosis of liver; K80.20 Calculus of gallbladder without cholecystitis without obstruction; L02.419 Cutaneous abscess of limb, unspecified; L03.116 Cellulitis of left lower limb; L97.929 Non-pressure chronic ulcer of unspecified part of left lower leg with unspecified severity; L97.919 Non-pressure chronic ulcer of unspecified part of right lower leg with unspecified severity; M21.619 Bunion of unspecified foot; M89.9 Disorder of bone, unspecified; N18.9 Chronic kidney disease, unspecified; Z59.00 Homelessness unspecified; Z78.1 Physical restraint status; R91.1 Solitary pulmonary nodule
CPT/HCPCS: 36410; 36415; 71045-TC; 73700-TC; 76700-TC; 76770-TC; 80048-TC; 80053-TC; 80076-TC; 80202-TC; 81001; 82550-TC; 82962-TC; 83605-TC; 83735-TC; 84100-TC; 84484-TC; 85025-TC; 85378-TC; 85610-TC; 85652-TC; 85730-TC; 86140-TC; 86480; 86704; 86706; 86803; 86850-TC; 87040-TC; 87070-TC; 87081-TC; 87086-TC; 87340; 87806; 88304-TC; 90935-TC; 93970-TC; A4216; A6248; A6253; A6407; C1750; C1757; C1769; C1894; C9803; G0378; J0610; J0690; J1040; J1100; J1630; J1644; J1815; J2020; J2060; J2270; J2405; J2543; J2704; J2765; J3010; J3370; J3490; J7030; J7042; J7060; Q9966; U0003

== ENCOUNTER 2022-02-28 12:32 | Emergency (ER) | payer MEDICAID, OTHER ==
[~2022-02-28] VITALS: Ht 177.8 cm; Wt 68.0 kg
[~2022-02-28 12:32] MED LIST: AMLO-212 PO; SEVE800T7 PO
--- NOTE | 2022-02-28 14:10 | NUR ---
phleb at bedside for blood draw
--- NOTE | 2022-02-28 14:15 | NUR ---
covid swab collected and sent to lab
[2022-02-28] MEDS ORDERED: AMLO-212 PO (14:16)
[2022-02-28] MEDS ORDERED: IPRA4AER IH (14:16)
[2022-02-28] MEDS ORDERED: ONDA-97 PO (14:16)
[2022-02-28] MEDS ORDERED: MAGN400O6 PO (14:16)
[2022-02-28] MEDS ORDERED: ACET-868 PO (14:16)
[2022-02-28] MEDS ORDERED: NA P133E RC (14:16)
[2022-02-28] MEDS ORDERED: QUET25TA PO (14:16)
[2022-02-28] MEDS ORDERED: ACET-2605 PO (14:16)
[2022-02-28] MEDS ORDERED: AMIN30LI2 PO (14:16)
[2022-02-28] MEDS ORDERED: BISA10SU11 RC (14:16)
[2022-02-28] MEDS ORDERED: FOLI0.8T2 PO (14:16)
[2022-02-28] MEDS ORDERED: PETR113O TP (14:16)
[2022-02-28] MEDS ORDERED: DOCU-141 PO (14:16)
--- NOTE | 2022-02-28 14:32 | NUR ---
MOVE SHEET SUBMITTED.
[2022-02-28 14:37] LABS: BASOPHILS % (AUTO) 0.5 % (0.0-2.0); EOSINOPHILS % (AUTO) 2.2 % (0.0-6.0); HEMATOCRIT 41 % (39-51); HEMOGLOBIN 13.7 g/dL (13.5-17.5); LYMPHOCYTES # (AUTO) 1.2 K/uL (0.8-4.8); LYMPHOCYTES % (AUTO) 25.5 % (20.0-44.0); MEAN CORPUSCULAR HGB CONC 34 g/dl (31.0-36.0); MEAN CORPUSCULAR VOLUME 94 fL (80-96); MONOCYTES # (AUTO) 0.4 K/uL (0.1-1.30); MONOCYTES % (AUTO) 8.2 % (2.0-12.0); NEUTROPHILS # (AUTO) 3.1 K/uL (1.8-8.9); NEUTROPHILS % (AUTO) 63.6 % (43.0-81.0); PLATELET COUNT (AUTO) 165 K/uL (150-450); RED BLOOD CELL COUNT(AUTO) 4.35 MIL/uL (4.5-6.0); WHITE BLOOD COUNT (AUTO) 4.9 K/uL (4.3-11.0)
--- NOTE | 2022-02-28 14:45 | NUR ---
[facility] CALLED AIRCRAFT ENGINEER PAGED.
--- NOTE | 2022-02-28 14:55 | NUR ---
DR CABALLERO SPEAKING W/ HOSPITALIST DR ALKHANI
[2022-02-28 15:02] LABS: CREATININE 1.5 mg/dL (0.6-1.3); POTASSIUM 4.4 mmol/L (3.5-5.1)
[2022-02-28] MEDS ORDERED: ONDANSETRON HCL/PF 4 MG/2 ML VIAL IVP PRN (17:00)
[2022-02-28] MEDS ORDERED: Z GUARD REMEDY 4 OZ OINT TP PRN (17:00)
[2022-02-28] MEDS ORDERED: ACETAMINOPHEN 325 MG TABLET PO PRN ×2 (17:00)
[2022-02-28] MEDS ORDERED: QUETIAPINE FUMARATE 25 MG TABLET PO SCH (17:00)
[2022-02-28] MEDS ORDERED: MAG HYDROX/AL HYDROX/SIMETH 30 ML UDC PO PRN (17:00)
[2022-02-28] MEDS ORDERED: MAGNESIUM HYDROXIDE 30 ML UDC PO PRN ×2 (17:00)
[2022-02-28] MEDS ORDERED: NA PHOS,M-B/NA PHOS,DI-BA 1 EA ENEMA RC PRN (17:00)
[2022-02-28] MEDS ORDERED: BISACODYL SUPP (10 MG) 10 MG/SUPP.RECT SUPP.RECT RC PRN (17:00)
--- NOTE | 2022-02-28 17:51 | NUR ---
Dr. dunbar at bedside and removed perm a cath. Dressing applied for 5 mins and no bleeding noted.
--- NOTE | 2022-02-28 17:57 | NUR ---
[facility] CALLED FOR TRANSPORT ETA 1929 PER CHRIS.
[2022-02-28] MEDS ORDERED: QUETIAPINE FUMARATE 25 MG TABLET ONE (19:02)
--- NOTE | 2022-02-28 19:25 | NUR ---
EMT AT BEDSIDE TO PICKUP PT.
--- NOTE | 2022-02-28 19:30 | NUR ---
JAG W/ BABATUNDE URBINA, FROM [facility]; PT REPORT GIVEN.
[2022-02-28 19:31] VITALS: BP 132/75
[2022-03-01] MEDS ORDERED: DOCUSATE SODIUM 100 MG CAPSULE PO SCH (09:00)
[2022-03-01] MEDS ORDERED: AMLODIPINE BESYLATE 5 MG TABLET PO SCH (09:00)
== END 2022-02-28 19:39 ==
LOC: ER 12:34
DX: Z49.01 Encounter for fitting and adjustment of extracorporeal dialysis catheter (principal); I12.9 Hypertensive chronic kidney disease with stage 1 through stage 4 chronic kidney disease, or unspecified chronic kidney disease; N18.9 Chronic kidney disease, unspecified; Z20.822 Contact with and (suspected) exposure to COVID-19; J44.9 Chronic obstructive pulmonary disease, unspecified; F25.9 Schizoaffective disorder, unspecified; Z59.01 Sheltered homelessness; H91.90 Unspecified hearing loss, unspecified ear; F17.210 Nicotine dependence, cigarettes, uncomplicated; Z86.39 Personal history of other endocrine, nutritional and metabolic disease
CPT/HCPCS: 36589; 99285; 87426; 85025; 80048; 36415; 85730; 87081; C9803

== ENCOUNTER 2023-08-01 01:35 | Inpatient (IN) | payer OTHER ==
[~2023-08-01] VITALS: Ht 177.8 cm; Wt 77.6 kg
[~2023-08-01 01:35] MED LIST changes: +ACET-2605 PO; +ACET-868 PO; +AMIN30LI2 PO; +BISA10SU11 RC; +DOCU-141 PO; +FOLI0.8T2 PO; +IPRA4AER IH; +MAGN400O6 PO; +NA P133E RC; +ONDA-97 PO; +PETR113O TP; +QUET25TA PO; -SEVE800T7 PO
[2023-08-01] MEDS ORDERED: PANTOPRAZOLE 40 MG VIAL ONE ×2 (01:45→08:35)
[2023-08-01] MEDS ORDERED: FAMOTIDINE/PF INJ 20 MG/2 ML VIAL IV ONE (01:46)
[2023-08-01] MEDS ORDERED: METOCLOPRAMIDE HCL 10 MG/2 ML VIAL ONE (01:46)
[2023-08-01] MEDS: FAMOTIDINE/PF INJ 40 MG in IV D5W 50 ML IV ONE (02:11)
[2023-08-01] MEDS: PANTOPRAZOLE 40 MG VIAL IV ONE (02:13)
[2023-08-01] MEDS: PANTOPRAZOLE 80 MG in IV NS 0.9% 500 ML IV ONE (02:13)
[2023-08-01] MEDS: METOCLOPRAMIDE HCL 10 MG/2 ML VIAL IV ONE (02:14)
[2023-08-01 02:41] LABS: BASOPHILS # (AUTO) 0.3 K/uL (0.0-0.2); BASOPHILS % (AUTO) 1.3 % (0.0-2.0); EOSINOPHILS % (AUTO) 0.2 % (0.0-6.0); HEMATOCRIT 49 % (39-51); HEMOGLOBIN 16.1 g/dL (13.5-17.5); LYMPHOCYTES % (AUTO) 5.4 % (20.0-44.0); MEAN CORPUSCULAR HEMOGLOBIN 32 PG (26.0-33.0); MEAN CORPUSCULAR HGB CONC 33 g/dl (31.0-36.0); MEAN CORPUSCULAR VOLUME 96 fL (80-96); MONOCYTES # (AUTO) 0.4 K/uL (0.1-1.30); MONOCYTES % (AUTO) 2.1 % (2.0-12.0); NEUTROPHILS # (AUTO) 17.5 K/uL (1.8-8.9); PLATELET COUNT (AUTO) 232 K/uL (150-450); RED BLOOD CELL COUNT(AUTO) 5.08 MIL/uL (4.5-6.0); RED CELL DISTRIBUTION WIDTH 14.7 % (11.5-15.0); WHITE BLOOD COUNT (AUTO) 19.2 K/uL (4.3-11.0)
[2023-08-01 02:56] LABS: INR 1.13 (0.91-1.10); PARTIAL THROMBOPLASTIN TIME 28.2 SEC (24.3-34.3); PROTHROMBIN TIME 11.9 SECS (9.2-11.1)
[2023-08-01 03:07] LABS: ALANINE AMINOTRANSFERASE 570 U/L (12-78); ALBUMIN 3.7 g/dL (3.4-5.0); ALKALINE PHOSPHATASE 103 U/L (46-116); ASPARTATE AMINOTRANSFERASE > 1000 U/L (15-37); BILIRUBIN,DIRECT 0.3 mg/dL (0.0-0.2); BILIRUBIN,TOTAL 0.7 mg/dL (0.2-1.0); LIPASE 172 U/L (16-77); TOTAL PROTEIN, SERUM 9.3 g/dL (6.4-8.2)
[2023-08-01 03:09] LABS: CALCIUM, SERUM 7.5 mg/dL (8.5-10.1); CARBON DIOXIDE 13 mmol/L (21-32); CHLORIDE 95 mmol/L (98-107); CREATININE 8.5 mg/dL (0.6-1.3); GLUCOSE 115 mg/dL (74-106); POTASSIUM 7.2 mmol/L (3.5-5.1); SODIUM SERUM 134 mmol/L (136-145); UREA NITROGEN, BLOOD 111 mg/dL (7-18)
[2023-08-01 03:56] LABS: BASOPHILS # (AUTO) 0.1 K/uL (0.0-0.2); BASOPHILS % (AUTO) 0.6 % (0.0-2.0); HEMATOCRIT 47 % (39-51); HEMOGLOBIN 15.3 g/dL (13.5-17.5); LYMPHOCYTES # (AUTO) 0.9 K/uL (0.8-4.8); LYMPHOCYTES % (AUTO) 4.8 % (20.0-44.0); MEAN CORPUSCULAR HEMOGLOBIN 31 PG (26.0-33.0); MEAN CORPUSCULAR HGB CONC 33 g/dl (31.0-36.0); MEAN CORPUSCULAR VOLUME 95 fL (80-96); MONOCYTES # (AUTO) 1.7 K/uL (0.1-1.30); MONOCYTES % (AUTO) 9.2 % (2.0-12.0); NEUTROPHILS % (AUTO) 85.4 % (43.0-81.0); PLATELET COUNT (AUTO) 202 K/uL (150-450); RED BLOOD CELL COUNT(AUTO) 4.91 MIL/uL (4.5-6.0); WHITE BLOOD COUNT (AUTO) 18.8 K/uL (4.3-11.0)
[2023-08-01 04:02] LABS: CALCIUM, SERUM 7.1 mg/dL (8.5-10.1)
[2023-08-01 04:09] LABS: CREATININE 8.3 mg/dL (0.6-1.3)
[2023-08-01] MEDS ORDERED: Calcium Gluconate 0.465 MEQ/ML VIAL IV ONE (04:21)
[2023-08-01 05:00] VITALS: O2SAT 92
[2023-08-01] MEDS ORDERED: ZOLPIDEM TARTRATE 5 MG TABLET PO PRN (05:00)
[2023-08-01] MEDS ORDERED: ACETAMINOPHEN 325 MG TABLET PO PRN (05:00)
[2023-08-01] MEDS ORDERED: ONDANSETRON HCL/PF 4 MG/2 ML VIAL IVP PRN (05:00)
[2023-08-01] MEDS: ALBUTEROL FS 2.5 MG/3 ML VIAL.NEB NEB ONE (05:00)
[2023-08-01] MEDS ORDERED: Z GUARD REMEDY 4 OZ OINT TP PRN (05:00)
[2023-08-01] MEDS ORDERED: MAGNESIUM HYDROXIDE 30 ML UDC PO PRN (05:00)
[2023-08-01] MEDS: CEFTRIAXONE 1GM BAG (ER ONLY) 1 GM/50 ML PIGGYBACK IV ONE (05:00)
[2023-08-01] MEDS: SODIUM BICARBONATE SYR 50 MEQ/50 ML DISP.SYRIN IV ONE (05:00)
[2023-08-01] MEDS: LACTULOSE 10 G/15 ML UDC (PYXIS) PO ONE (05:00)
[2023-08-01] MEDS: INSULIN REGULAR, HUMAN 100 UNIT/ML 10 ML VIAL IV ONE (05:02)
[2023-08-01] MEDS: FUROSEMIDE 40 MG/4 ML VIAL IV ONE (05:02)
[2023-08-01] MEDS: DEXTROSE 50%-WATER 50 ML DISP.SYRIN IV ONE (05:02)
[2023-08-01] MEDS: Calcium Gluconate 1GM/10ML 4.65 MEQ in IV NS 0.9% 100 ML IV ONE (05:02)
[2023-08-01] MEDS ORDERED: CEFTRIAXONE 1 G VIAL ONE (05:08)
[2023-08-01 05:10] VITALS: O2SAT 96
[2023-08-01 05:20] VITALS: O2SAT 98
[2023-08-01] MEDS: IV LR 1000 ML 1,000 ML BAG IV ONE (05:34)
[2023-08-01 06:30] LABS: APPEARANCE,URINE SLIGHTLY CLOUDY (CLEAR); BILIRUBIN,URINE 2+ (NEGATIVE); BLOOD, URINE 3+ Ery/uL (NEGATIVE); COLOR,URINE AMBER (YELLOW); KETONES,URINE 1+ mg/dL (NEGATIVE); LEUKOCYTE ESTERASE ,URINE NEGATIVE (NEGATIVE); NITRITE, URINE POSITIVE (NEGATIVE); PH,URINE 6.5 (5.0-8.0); PROTEIN,URINE 3+ mg/dl (NEGATIVE); UGLUCOSE NEGATIVE (NEGATIVE)
[2023-08-01 06:32] LABS: CALCIUM, SERUM 7.4 mg/dL (8.5-10.1)
[2023-08-01 06:49] LABS: ADD URINE CULTURE YES; BACTERIA,URINE 1+ /HPF (None Seen); MUCUS,URINE Few /LPF (None Seen); SQUAMOUS EPITHELIAL CELL,UR None Seen /HPF (None Seen)
[2023-08-01 07:04] LABS: CREATININE 8.6 mg/dL (0.6-1.3)
[2023-08-01] MEDS ORDERED: SODIUM BICARBONATE SYR 50 MEQ/50 ML DISP.SYRIN ONE (07:34)
[2023-08-01] MEDS ORDERED: LACTULOSE 10 G/15 ML UDC (PYXIS) ONE (07:34)
[2023-08-01] MEDS ORDERED: MAG HYDROX/AL HYDROX/SIMETH 30 ML UDC ONE (07:57)
[2023-08-01] MEDS: MAG HYDROX/AL HYDROX/SIMETH 30 ML UDC PO PRN (07:58)
[2023-08-01] MEDS: PANTOPRAZOLE 40 MG VIAL IV SCH (10:12)
[2023-08-01 10:43] LABS: CALCIUM, SERUM 6.5 mg/dL (8.5-10.1); POTASSIUM 5.8 mmol/L (3.5-5.1)
[2023-08-01 10:46] LABS: CREATININE 8.6 mg/dL (0.6-1.3)
[2023-08-01 12:00] VITALS: BP 121/67; TEMP 98; O2SAT 94
[2023-08-01 15:57] LABS: CREATININE, URINE 160.2 MG/DL (30.0-125.0)
[2023-08-01 16:00] VITALS: BP 146/86; TEMP 97.5; O2SAT 94
[2023-08-01 16:08] LABS: URINE TOTAL PROTEIN 517.3 mg/dL (0-11.9)
[2023-08-01 16:30] LABS: CALCIUM, SERUM 7.2 mg/dL (8.5-10.1); POTASSIUM 5.3 mmol/L (3.5-5.1)
[2023-08-01] MEDS: NICOTINE PATCH (14MG) 14 MG PATCH.TD24 TD SCH (18:17)
[2023-08-01 20:00] VITALS: BP 137/80; TEMP 98.4; O2SAT 93
[2023-08-02] VITALS: BP 128/78; TEMP 97.8; O2SAT 95
[2023-08-02 04:00] VITALS: BP 129/75; TEMP 98; O2SAT 95
[2023-08-02] MEDS: CEFTRIAXONE 1 G in IV D5W 50 ML IV SCH (04:04)
[2023-08-02 05:52] LABS: ABG BASE EXCESS -5.3 mmol/L; ABG OXYGEN SATURATION 92.2 % (92.0-98.5); ABG PCO2 24.8 mmHg (35.0-45.0); ABG PH 7.444 (7.350-7.450); ABG PO2 64.4 mmHg (75.0-100.0); ABG TOTAL HEMOGLOBIN 15.7 G/dL (13.5-18.0); AaDO2 55.6 mmHg; MetHb 0.2 % (0.0-1.5); O2Hb 91.1 % (94.0-97.0); SITE, ABG Left Radial; VENT MODE, BG Room Air
[2023-08-02 06:49] LABS: BASOPHILS % (AUTO) 0.1 % (0.0-2.0); HEMATOCRIT 41 % (39-51); HEMOGLOBIN 13.7 g/dL (13.5-17.5); LYMPHOCYTES # (AUTO) 0.9 K/uL (0.8-4.8); MEAN CORPUSCULAR HEMOGLOBIN 31 PG (26.0-33.0); MEAN CORPUSCULAR HGB CONC 33 g/dl (31.0-36.0); MEAN CORPUSCULAR VOLUME 93 fL (80-96); MONOCYTES % (AUTO) 8.4 % (2.0-12.0); NEUTROPHILS # (AUTO) 10.4 K/uL (1.8-8.9); NEUTROPHILS % (AUTO) 84.5 % (43.0-81.0); PLATELET COUNT (AUTO) 169 K/uL (150-450); RED CELL DISTRIBUTION WIDTH 13.4 % (11.5-15.0); WHITE BLOOD COUNT (AUTO) 12.3 K/uL (4.3-11.0)
[2023-08-02 07:28] LABS: ALANINE AMINOTRANSFERASE 756 U/L (12-78); ALBUMIN 2.9 g/dL (3.4-5.0); ALKALINE PHOSPHATASE 81 U/L (46-116); ASPARTATE AMINOTRANSFERASE > 1000 U/L (15-37); BILIRUBIN,TOTAL 0.8 mg/dL (0.2-1.0); CALCIUM, SERUM 6.7 mg/dL (8.5-10.1); CARBON DIOXIDE 18 mmol/L (21-32); CHLORIDE 102 mmol/L (98-107); GLUCOSE 105 mg/dL (74-106); MAGNESIUM 3.1 mg/dL (1.8-2.4); PHOSPHORUS 6.5 mg/dL (2.5-4.9); POTASSIUM 5.5 mmol/L (3.5-5.1); SODIUM SERUM 141 mmol/L (136-145); TOTAL PROTEIN, SERUM 7.4 g/dL (6.4-8.2)
[2023-08-02 07:29] LABS: CREATININE 8.6 mg/dL (0.6-1.3); UREA NITROGEN, BLOOD 104 mg/dL (7-18)
[2023-08-02 08:00] VITALS: BP 135/84; TEMP 97.7; O2SAT 92
[2023-08-02 08:44] LABS: CREATINE KINASE, TOTAL 4565 U/L (39-308)
[2023-08-02 12:00] VITALS: BP 143/63; TEMP 97.7; O2SAT 92
[2023-08-02 13:07] LABS: HEPATITIS B SURFACE AB Non Reactive (.)
[2023-08-02 16:00] VITALS: BP 153/107; TEMP 97.3; O2SAT 94
[2023-08-02 20:00] VITALS: BP 153/88; TEMP 97.7; O2SAT 93
[2023-08-03] VITALS: BP 135/79; TEMP 97.5; O2SAT 94
[2023-08-03 04:00] VITALS: BP 127/59; TEMP 97.7; O2SAT 94
[2023-08-03 08:00] VITALS: BP 138/73; TEMP 98.2; O2SAT 96
[2023-08-03 12:00] VITALS: BP 115/77; TEMP 97.9; O2SAT 93
[2023-08-03 16:00] VITALS: BP 134/85; TEMP 97.7; O2SAT 93
[2023-08-03 20:00] VITALS: BP 123/79; TEMP 97.9; O2SAT 100
[2023-08-04] VITALS: BP 126/73; TEMP 98.6
[2023-08-04 04:00] VITALS: BP 120/79; TEMP 98; O2SAT 98
[2023-08-04 08:00] VITALS: BP 119/78; TEMP 98.2; O2SAT 98
[2023-08-04 08:18] LABS: BASOPHILS % (AUTO) 0.3 % (0.0-2.0); EOSINOPHILS % (AUTO) 0.4 % (0.0-6.0); HEMATOCRIT 45 % (39-51); HEMOGLOBIN 15.2 g/dL (13.5-17.5); LYMPHOCYTES % (AUTO) 10.2 % (20.0-44.0); MEAN CORPUSCULAR HEMOGLOBIN 31 PG (26.0-33.0); MEAN CORPUSCULAR HGB CONC 34 g/dl (31.0-36.0); MEAN CORPUSCULAR VOLUME 93 fL (80-96); MONOCYTES # (AUTO) 1.1 K/uL (0.1-1.30); MONOCYTES % (AUTO) 11.3 % (2.0-12.0); NEUTROPHILS # (AUTO) 7.9 K/uL (1.8-8.9); NEUTROPHILS % (AUTO) 77.8 % (43.0-81.0); PLATELET COUNT (AUTO) 162 K/uL (150-450); RED BLOOD CELL COUNT(AUTO) 4.84 MIL/uL (4.5-6.0); WHITE BLOOD COUNT (AUTO) 10.1 K/uL (4.3-11.0)
[2023-08-04 09:45] LABS: ALBUMIN 2.8 g/dL (3.4-5.0); BILIRUBIN,TOTAL 1.3 mg/dL (0.2-1.0); CALCIUM, SERUM 7.7 mg/dL (8.5-10.1); CREATININE 6.8 mg/dL (0.6-1.3); MAGNESIUM 2.7 mg/dL (1.8-2.4); PHOSPHORUS 5.1 mg/dL (2.5-4.9); POTASSIUM 3.9 mmol/L (3.5-5.1); TOTAL PROTEIN, SERUM 7.6 g/dL (6.4-8.2)
[2023-08-04 10:06] LABS: PTH, INTACT 305 pg/mL (15-65)
[2023-08-04 12:00] VITALS: BP 111/76; TEMP 97.9; O2SAT 98
[2023-08-04 16:00] VITALS: BP 107/75; TEMP 98.2; O2SAT 98
[2023-08-04 20:00] VITALS: BP 130/75; TEMP 97.8; O2SAT 99
[2023-08-05 04:00] VITALS: BP 120/67; TEMP 92; O2SAT 94
[2023-08-05] MEDS ORDERED: LIDOCAINE HCL/MPF 1% 30 ML VIAL IJ ONE (06:20)
[2023-08-05] MEDS ORDERED: IOHEXOL 0 ML IV ONE (06:20)
[2023-08-05] MEDS ORDERED: HEPARIN SODIUM, PORCINE 1,000 UNIT/ML VIAL ONE (06:20)
[2023-08-05 06:53] LABS: BASOPHILS % (AUTO) 0.2 % (0.0-2.0); EOSINOPHILS % (AUTO) 0.3 % (0.0-6.0); HEMATOCRIT 44 % (39-51); HEMOGLOBIN 15.2 g/dL (13.5-17.5); LYMPHOCYTES # (AUTO) 0.8 K/uL (0.8-4.8); LYMPHOCYTES % (AUTO) 6.3 % (20.0-44.0); MEAN CORPUSCULAR HEMOGLOBIN 32 PG (26.0-33.0); MEAN CORPUSCULAR HGB CONC 35 g/dl (31.0-36.0); MEAN CORPUSCULAR VOLUME 92 fL (80-96); MONOCYTES # (AUTO) 1.1 K/uL (0.1-1.30); MONOCYTES % (AUTO) 8.9 % (2.0-12.0); NEUTROPHILS # (AUTO) 10.1 K/uL (1.8-8.9); NEUTROPHILS % (AUTO) 84.3 % (43.0-81.0); PLATELET COUNT (AUTO) 167 K/uL (150-450); RED BLOOD CELL COUNT(AUTO) 4.74 MIL/uL (4.5-6.0); RED CELL DISTRIBUTION WIDTH 12.9 % (11.5-15.0)
[2023-08-05 07:37] LABS: ALBUMIN 2.6 g/dL (3.4-5.0); BILIRUBIN,TOTAL 1.1 mg/dL (0.2-1.0); CALCIUM, SERUM 7.2 mg/dL (8.5-10.1); MAGNESIUM 2.9 mg/dL (1.8-2.4); PHOSPHORUS 7.4 mg/dL (2.5-4.9); POTASSIUM 4.6 mmol/L (3.5-5.1); TOTAL PROTEIN, SERUM 7.5 g/dL (6.4-8.2)
[2023-08-05 08:03] LABS: CREATININE 8.8 mg/dL (0.6-1.3)
[2023-08-05 08:38] VITALS: BP 120/75; TEMP 98.1; O2SAT 96
[2023-08-05 09:45] LABS: APPEARANCE,URINE TURBID (CLEAR); BILIRUBIN,URINE 2+ (NEGATIVE); BLOOD, URINE 3+ Ery/uL (NEGATIVE); COLOR,URINE AMBER (YELLOW); KETONES,URINE 1+ mg/dL (NEGATIVE); LEUKOCYTE ESTERASE ,URINE TRACE (NEGATIVE); NITRITE, URINE POSITIVE (NEGATIVE); PH,URINE 6.5 (5.0-8.0); PROTEIN,URINE 3+ mg/dl (NEGATIVE); UGLUCOSE TRACE mg/dL (NEGATIVE)
[2023-08-05 09:50] LABS: ADD URINE CULTURE YES; BACTERIA,URINE Few /HPF (None Seen); RBC,URINE 21-50 /HPF (0-2); SQUAMOUS EPITHELIAL CELL,UR Moderate /HPF (None Seen)
[2023-08-05 09:56] LABS: CREATININE, URINE 183.1 MG/DL (30.0-125.0)
[2023-08-05 10:12] LABS: URINE TOTAL PROTEIN 1411.2 mg/dL (0-11.9)
[2023-08-05 13:00] VITALS: BP 118/69; TEMP 97.9; O2SAT 95
[2023-08-05 13:09] LABS: *SPE A/G RATIO 0.9 (0.7-1.7); *SPE ALBUMIN 3.2 g/dL (2.9-4.4); *SPE ALPHA-1-GLOBULIN 0.2 g/dL (0.0-0.4); *SPE ALPHA-2-GLOBULIN 0.8 g/dL (0.4-1.0); *SPE BETA GLOBULIN 0.9 g/dL (0.7-1.3); *SPE GLOBULIN, TOTAL 3.7 g/dL (2.2-3.9); *SPE M-SPIKE Not Observed g/dL (Not Observed); *SPE PROTEIN TOTAL 6.9 g/dL (6.0-8.5); *SPEGAMMA GLOBULIN 1.8 g/dL (0.4-1.8)
[2023-08-05 20:00] VITALS: BP 98/62; TEMP 98.4; O2SAT 90
[2023-08-05 21:00] VITALS: BP 98/62; TEMP 98.4; O2SAT 90
[2023-08-06 05:00] VITALS: BP 117/73; TEMP 97.7; O2SAT 90
[2023-08-06 07:36] LABS: BASOPHILS % (AUTO) 0.1 % (0.0-2.0); EOSINOPHILS # (AUTO) 0.2 K/uL (0.0-0.7); EOSINOPHILS % (AUTO) 1.6 % (0.0-6.0); HEMATOCRIT 42 % (39-51); HEMOGLOBIN 14.5 g/dL (13.5-17.5); LYMPHOCYTES # (AUTO) 1.1 K/uL (0.8-4.8); LYMPHOCYTES % (AUTO) 8.8 % (20.0-44.0); MEAN CORPUSCULAR HEMOGLOBIN 32 PG (26.0-33.0); MEAN CORPUSCULAR HGB CONC 34 g/dl (31.0-36.0); MEAN CORPUSCULAR VOLUME 93 fL (80-96); MONOCYTES # (AUTO) 1.2 K/uL (0.1-1.30); NEUTROPHILS # (AUTO) 9.6 K/uL (1.8-8.9); NEUTROPHILS % (AUTO) 79.5 % (43.0-81.0); PLATELET COUNT (AUTO) 160 K/uL (150-450); RED BLOOD CELL COUNT(AUTO) 4.57 MIL/uL (4.5-6.0); RED CELL DISTRIBUTION WIDTH 13.2 % (11.5-15.0); WHITE BLOOD COUNT (AUTO) 12.2 K/uL (4.3-11.0)
[2023-08-06 08:00] VITALS: BP 126/77; TEMP 97.9; O2SAT 90
[2023-08-06] MEDS ORDERED: NEPRO VAN 237 ML CAN PO PRN (08:00)
[2023-08-06 08:56] LABS: ALBUMIN 2.4 g/dL (3.4-5.0); CALCIUM, SERUM 7.8 mg/dL (8.5-10.1); MAGNESIUM 2.6 mg/dL (1.8-2.4); PHOSPHORUS 5.6 mg/dL (2.5-4.9); POTASSIUM 3.9 mmol/L (3.5-5.1)
[2023-08-06] MEDS: PANTOPRAZOLE 40 MG TABLET.DR PO SCH (09:03)
[2023-08-06] MEDS ORDERED: CIPR-262 PO (12:28)
[2023-08-06 20:00] VITALS: BP 141/75; TEMP 99; O2SAT 97
[2023-08-07 04:00] VITALS: BP 127/70; TEMP 98.1; O2SAT 98
[2023-08-07 08:00] VITALS: BP 131/78; TEMP 98.8; O2SAT 94
== END 2023-08-07 20:32 | DRG 425 ==
LOC: ER 01:44 → TRANSITION 07:22 → TELE1 08:39 → TELE-TD 08:45 → TELE1 08-03 12:39 → MEDSG1 08-04 10:44
PROVIDERS: ATTEND Internal Medicine
PROC: 5A1D70Z Performance of Urinary Filtration, Intermittent, Less than 6 Hours Per Day (ICD-10-PCS; principal; 2023-08-01)
PROC: 05HM33Z Insertion of Infusion Device into Right Internal Jugular Vein, Percutaneous Approach (ICD-10-PCS; 2023-08-02)
PROC: B543ZZA Ultrasonography of Right Jugular Veins, Guidance (ICD-10-PCS; 2023-08-02)
PROC: 0JH63XZ Insertion of Tunneled Vascular Access Device into Chest Subcutaneous Tissue and Fascia, Percutaneous Approach (ICD-10-PCS; 2023-08-05)
PROC: 05HM33Z Insertion of Infusion Device into Right Internal Jugular Vein, Percutaneous Approach (ICD-10-PCS; 2023-08-05)
PROC: B513YZA Fluoroscopy of Right Jugular Veins using Other Contrast, Guidance (ICD-10-PCS; 2023-08-05)
DX: E87.5 Hyperkalemia (principal); E87.20 Acidosis, unspecified; K92.0 Hematemesis; I12.0 Hypertensive chronic kidney disease with stage 5 chronic kidney disease or end stage renal disease; E83.51 Hypocalcemia; N18.6 End stage renal disease; N39.0 Urinary tract infection, site not specified; E11.22 Type 2 diabetes mellitus with diabetic chronic kidney disease; F20.9 Schizophrenia, unspecified; J44.9 Chronic obstructive pulmonary disease, unspecified; H91.90 Unspecified hearing loss, unspecified ear; M89.8X9 Other specified disorders of bone, unspecified site; K20.90 Esophagitis, unspecified without bleeding; K74.60 Unspecified cirrhosis of liver; M86.9 Osteomyelitis, unspecified; Z87.891 Personal history of nicotine dependence; E11.69 Type 2 diabetes mellitus with other specified complication
CPT/HCPCS: 36415; 36600; 71045-TC; 76770-TC; 80048-TC; 80053-TC; 80076-TC; 81001; 82550-TC; 82553; 82570-TC; 82803-TC; 82962-TC; 83605-TC; 83690-TC; 83735-TC; 83935-TC; 83970; 84100-TC; 84155; 84165; 84300-TC; 85025-TC; 85730-TC; 86706; 86850-TC; 87040-TC; 87086-TC; 87340; 90935-TC; 94760-TC; 97110-TC; 97116-TC; 97530-TC; 97535-TC; A4223; A6403; C1750; C9113; G0378; J0610; J0690; J0696; J1644; J1815; J1940; J2704; J2765; J3490; J7030; J7040; J7050; J7060; J7120; Q9967

== ENCOUNTER 2024-01-01 11:49 | Emergency (ER) | payer OTHER ==
[~2024-01-01] VITALS: Ht 170.2 cm; Wt 73.9 kg
[~2024-01-01 11:49] MED LIST changes: -ACET-2605 PO; -ACET-868 PO; -AMIN30LI2 PO; -BISA10SU11 RC; +CIPR-262 PO; -MAGN400O6 PO; -NA P133E RC; -ONDA-97 PO; -PETR113O TP
[2024-01-01 11:58] VITALS: TEMP 98.4
[2024-01-01] MEDS ORDERED: CEPH-570 PO (12:14)
[2024-01-01] MEDS ORDERED: SULF1TAB48 PO (12:14)
[2024-01-01 12:51] LABS: CALCIUM, SERUM 9.2 mg/dL (8.5-10.1); CREATININE 1.3 mg/dL (0.6-1.3); POTASSIUM 5.1 mmol/L (3.5-5.1)
[2024-01-01] MEDS ORDERED: LIDOCAINE 1% INJ 50 ML MDV IJ ONE (13:41)
[2024-01-01 15:36] VITALS: BP 143/69; O2SAT 95
== END 2024-01-01 15:36 ==
LOC: ER 11:56
DX: Z45.2 Encounter for adjustment and management of vascular access device (principal); I12.0 Hypertensive chronic kidney disease with stage 5 chronic kidney disease or end stage renal disease; N18.6 End stage renal disease; E11.22 Type 2 diabetes mellitus with diabetic chronic kidney disease; F20.9 Schizophrenia, unspecified; J44.9 Chronic obstructive pulmonary disease, unspecified; F17.200 Nicotine dependence, unspecified, uncomplicated; Z79.899 Other long term (current) drug therapy; Z99.2 Dependence on renal dialysis
CPT/HCPCS: 99283; 80048; 36415; J3490

== ENCOUNTER 2024-06-23 12:59 | Inpatient (IN) | payer OTHER ==
[~2024-06-23] VITALS: Ht 165.1 cm; Wt 77.6 kg
[2024-06-23 13:27] LABS: BASOPHILS % (AUTO) 0.7 % (0.0-2.0); EOSINOPHILS % (AUTO) 1.1 % (0.0-6.0); HEMATOCRIT 45 % (39-51); HEMOGLOBIN 15.4 g/dL (13.5-17.5); LYMPHOCYTES # (AUTO) 1.3 K/uL (0.8-4.8); LYMPHOCYTES % (AUTO) 28.8 % (20.0-44.0); MEAN CORPUSCULAR HEMOGLOBIN 31 PG (26.0-33.0); MEAN CORPUSCULAR HGB CONC 34 g/dl (31.0-36.0); MEAN CORPUSCULAR VOLUME 92 fL (80-96); MONOCYTES # (AUTO) 0.3 K/uL (0.1-1.30); MONOCYTES % (AUTO) 7.5 % (2.0-12.0); NEUTROPHILS # (AUTO) 2.9 K/uL (1.8-8.9); NEUTROPHILS % (AUTO) 61.9 % (43.0-81.0); PLATELET COUNT (AUTO) 176 K/uL (150-450); RED BLOOD CELL COUNT(AUTO) 4.91 MIL/uL (4.5-6.0); RED CELL DISTRIBUTION WIDTH 13.4 % (11.5-15.0); WHITE BLOOD COUNT (AUTO) 4.6 K/uL (4.3-11.0)
[2024-06-23 13:48] LABS: CREATININE 1.2 mg/dL (0.6-1.3); POTASSIUM 4.6 mmol/L (3.5-5.1)
[2024-06-23] MEDS ORDERED: ACET-73 PO (13:55)
[2024-06-23] MEDS ORDERED: GUAI-425 PO (13:55)
[2024-06-23] MEDS ORDERED: MULT-213 PO (13:55)
[2024-06-23] MEDS ORDERED: ACET-637 PO (13:55)
[2024-06-23] MEDS ORDERED: DIVA125T2 PO (13:55)
[2024-06-23] MEDS ORDERED: GABA-532 PO (13:55)
[2024-06-23] MEDS ORDERED: ACET325T53 PO (13:55)
[2024-06-23] MEDS ORDERED: METH500T6 PO (13:55)
[2024-06-23 14:08] LABS: INR 1.07 (0.91-1.10); PARTIAL THROMBOPLASTIN TIME 27.2 SEC (24.3-34.3); PROTHROMBIN TIME 11.3 SECS (9.2-11.1)
[2024-06-23] MEDS ORDERED: MAG HYDROX/AL HYDROX/SIMETH 30 ML UDC PO PRN (20:30)
[2024-06-23] MEDS ORDERED: ACETAMINOPHEN 325 MG TABLET PO PRN (20:30)
[2024-06-23] MEDS ORDERED: ONDANSETRON HCL/PF 4 MG/2 ML VIAL IVP PRN (20:30)
[2024-06-23] MEDS ORDERED: MAGNESIUM HYDROXIDE 30 ML UDC PO PRN (20:30)
[2024-06-23] MEDS ORDERED: METHOCARBAMOL (500MG) 500 MG TABLET PO PRN (20:30)
[2024-06-24] MEDS ORDERED: IPRATROPIUM NEB FS 0.5 MG/2.5 ML AMPUL.NEB IH PRN (01:30)
[2024-06-24] MEDS ORDERED: ALBUTEROL FS 2.5 MG/0.5 ML VIAL.NEB NEB PRN (01:30)
[2024-06-24 07:20] LABS: BASOPHILS % (AUTO) 0.6 % (0.0-2.0); EOSINOPHILS # (AUTO) 0.1 K/uL (0.0-0.7); EOSINOPHILS % (AUTO) 2.2 % (0.0-6.0); HEMATOCRIT 44 % (39-51); HEMOGLOBIN 14.7 g/dL (13.5-17.5); LYMPHOCYTES # (AUTO) 1.5 K/uL (0.8-4.8); MEAN CORPUSCULAR HEMOGLOBIN 31 PG (26.0-33.0); MEAN CORPUSCULAR HGB CONC 34 g/dl (31.0-36.0); MEAN CORPUSCULAR VOLUME 92 fL (80-96); MONOCYTES # (AUTO) 0.4 K/uL (0.1-1.30); MONOCYTES % (AUTO) 9.5 % (2.0-12.0); NEUTROPHILS # (AUTO) 2.4 K/uL (1.8-8.9); NEUTROPHILS % (AUTO) 53.7 % (43.0-81.0); PLATELET COUNT (AUTO) 171 K/uL (150-450); RED BLOOD CELL COUNT(AUTO) 4.72 MIL/uL (4.5-6.0); RED CELL DISTRIBUTION WIDTH 13.4 % (11.5-15.0); WHITE BLOOD COUNT (AUTO) 4.5 K/uL (4.3-11.0)
[2024-06-24 07:30] VITALS: BP 132/65; TEMP 97.9; O2SAT 93
[2024-06-24 07:45] LABS: CALCIUM, SERUM 8.9 mg/dL (8.5-10.1); CREATININE 1.2 mg/dL (0.6-1.3); MAGNESIUM 2.2 mg/dL (1.8-2.4); PHOSPHORUS 3.1 mg/dL (2.5-4.9); POTASSIUM 4.4 mmol/L (3.5-5.1)
[2024-06-24] MEDS: DIVALPROEX SODIUM 125 MG TABLET.DR PO SCH (08:10)
[2024-06-24] MEDS: PANTOPRAZOLE 40 MG VIAL IV SCH (08:11)
[2024-06-24] MEDS: MULTIVIT W/MINERALS 1 TAB TABLET PO SCH (08:11)
[2024-06-24] MEDS: GABAPENTIN 100 MG CAPSULE PO SCH (08:11)
[2024-06-24] MEDS: AMLODIPINE BESYLATE 5 MG TABLET PO SCH (08:11)
[2024-06-24] MEDS: NICOTINE PATCH (14MG) 14 MG PATCH.TD24 TD SCH (08:12)
[2024-06-24 16:27] VITALS: BP 132/60; TEMP 97.9; O2SAT 94
[2024-06-24 20:00] VITALS: BP 133/65; TEMP 98.1; O2SAT 93
[2024-06-25 07:30] VITALS: BP 128/64; TEMP 97.9; O2SAT 92
[2024-06-25] MEDS: PANTOPRAZOLE 40 MG TABLET.DR PO SCH (08:41)
[2024-06-25 16:30] VITALS: BP 121/62; TEMP 97.9; O2SAT 93
[2024-06-25 20:00] VITALS: BP 121/68; TEMP 97.9; O2SAT 94
[2024-06-26 06:30] LABS: BASOPHILS % (AUTO) 0.4 % (0.0-2.0); EOSINOPHILS # (AUTO) 0.1 K/uL (0.0-0.7); HEMATOCRIT 44 % (39-51); HEMOGLOBIN 15.2 g/dL (13.5-17.5); LYMPHOCYTES # (AUTO) 1.4 K/uL (0.8-4.8); LYMPHOCYTES % (AUTO) 32.3 % (20.0-44.0); MEAN CORPUSCULAR HEMOGLOBIN 32 PG (26.0-33.0); MEAN CORPUSCULAR HGB CONC 35 g/dl (31.0-36.0); MEAN CORPUSCULAR VOLUME 92 fL (80-96); MONOCYTES # (AUTO) 0.4 K/uL (0.1-1.30); MONOCYTES % (AUTO) 9.5 % (2.0-12.0); NEUTROPHILS # (AUTO) 2.4 K/uL (1.8-8.9); NEUTROPHILS % (AUTO) 55.8 % (43.0-81.0); PLATELET COUNT (AUTO) 166 K/uL (150-450); RED BLOOD CELL COUNT(AUTO) 4.76 MIL/uL (4.5-6.0); RED CELL DISTRIBUTION WIDTH 13.1 % (11.5-15.0); WHITE BLOOD COUNT (AUTO) 4.3 K/uL (4.3-11.0)
[2024-06-26 06:34] LABS: INR 1.08 (0.91-1.10); PARTIAL THROMBOPLASTIN TIME 26.8 SEC (24.3-34.3); PROTHROMBIN TIME 11.4 SECS (9.2-11.1)
[2024-06-26 06:54] LABS: CALCIUM, SERUM 8.8 mg/dL (8.5-10.1); CREATININE 1.5 mg/dL (0.6-1.3); MAGNESIUM 2.1 mg/dL (1.8-2.4); PHOSPHORUS 3.9 mg/dL (2.5-4.9); POTASSIUM 4.1 mmol/L (3.5-5.1)
[2024-06-26 08:00] VITALS: BP 132/72; TEMP 98.2; O2SAT 95
[2024-06-26] MEDS ORDERED: HEMOSTATIC MATRIX 8 ML 1 EACH PAD MC ONE (14:09)
[2024-06-26] MEDS ORDERED: IOHEXOL 240MG/ML 0 ML IV ONE (14:09)
[2024-06-26] MEDS ORDERED: ROPIVACAINE HCL 0.5% 5 MG/ML 30ML VIAL ONE (14:10)
[2024-06-26] MEDS ORDERED: GELATIN SPONGE,ABSORBABLE 1 EA SPONGE TP ONE (14:10)
[2024-06-26] MEDS ORDERED: CELLULOSE,OXIDIZED 1 EA PACK MC ONE (14:10)
[2024-06-26] MEDS ORDERED: LIDOCAINE 1% INJ 50 ML MDV IJ ONE (14:10)
[2024-06-26] MEDS ORDERED: CELLULOSE,OXIDIZED 1 EACH EACH MC ONE (14:10)
[2024-06-26] MEDS ORDERED: HEPARIN SODIUM, PORCINE 1,000 UNIT/ML VIAL ONE (14:48)
[2024-06-26] MEDS ORDERED: HYDROCODONE/APAP 5/325MG TABLET PO PRN (17:30)
[2024-06-26] MEDS: HYDROCODONE/APAP 5/325MG TABLET PO PRN (17:43)
[2024-06-26 20:43] VITALS: BP 162/77; TEMP 98.1; O2SAT 96
[2024-06-26 20:57] VITALS: BP 150/70
[2024-06-27 06:55] LABS: BASOPHILS % (AUTO) 0.7 % (0.0-2.0); EOSINOPHILS # (AUTO) 0.1 K/uL (0.0-0.7); EOSINOPHILS % (AUTO) 2.2 % (0.0-6.0); HEMATOCRIT 44 % (39-51); HEMOGLOBIN 15.1 g/dL (13.5-17.5); MEAN CORPUSCULAR HEMOGLOBIN 31 PG (26.0-33.0); MEAN CORPUSCULAR HGB CONC 34 g/dl (31.0-36.0); MEAN CORPUSCULAR VOLUME 92 fL (80-96); MONOCYTES # (AUTO) 0.4 K/uL (0.1-1.30); MONOCYTES % (AUTO) 10.4 % (2.0-12.0); NEUTROPHILS # (AUTO) 2.4 K/uL (1.8-8.9); NEUTROPHILS % (AUTO) 60.7 % (43.0-81.0); PLATELET COUNT (AUTO) 147 K/uL (150-450); RED BLOOD CELL COUNT(AUTO) 4.84 MIL/uL (4.5-6.0); RED CELL DISTRIBUTION WIDTH 13.3 % (11.5-15.0); WHITE BLOOD COUNT (AUTO) 3.9 K/uL (4.3-11.0)
[2024-06-27 07:19] LABS: ALBUMIN 2.9 g/dL (3.4-5.0); BILIRUBIN,TOTAL 0.5 mg/dL (0.2-1.0); CALCIUM, SERUM 8.6 mg/dL (8.5-10.1); CREATININE 1.2 mg/dL (0.6-1.3); MAGNESIUM 2.1 mg/dL (1.8-2.4); PHOSPHORUS 3.1 mg/dL (2.5-4.9); POTASSIUM 3.9 mmol/L (3.5-5.1); TOTAL PROTEIN, SERUM 7.2 g/dL (6.4-8.2)
[2024-06-27 08:30] VITALS: BP 145/73; TEMP 97.7; O2SAT 94
== END 2024-06-27 13:00 | DRG 447 ==
LOC: ER 13:05 → MED 19:58
PROVIDERS: ATTEND Nurse Practitioner Acute Care
PROC: 03PY3JZ Removal of Synthetic Substitute from Upper Artery, Percutaneous Approach (ICD-10-PCS; 2024-06-26)
PROC: 05PY3JZ Removal of Synthetic Substitute from Upper Vein, Percutaneous Approach (ICD-10-PCS; principal; 2024-06-26 18:30)
DX: Z49.01 Encounter for fitting and adjustment of extracorporeal dialysis catheter (principal); E44.0 Moderate protein-calorie malnutrition; E11.22 Type 2 diabetes mellitus with diabetic chronic kidney disease; E11.69 Type 2 diabetes mellitus with other specified complication; E88.09 Other disorders of plasma-protein metabolism, not elsewhere classified; M86.60 Other chronic osteomyelitis, unspecified site; F17.210 Nicotine dependence, cigarettes, uncomplicated; D64.9 Anemia, unspecified; F41.9 Anxiety disorder, unspecified; J44.9 Chronic obstructive pulmonary disease, unspecified; Z71.6 Tobacco abuse counseling; F20.9 Schizophrenia, unspecified; I10 Essential (primary) hypertension; Z79.899 Other long term (current) drug therapy; Z79.51 Long term (current) use of inhaled steroids; G47.00 Insomnia, unspecified; Z87.448 Personal history of other diseases of urinary system; Z92.89 Personal history of other medical treatment; M89.8X9 Other specified disorders of bone, unspecified site
CPT/HCPCS: 36415; 80048-TC; 80053-TC; 82962-TC; 83735-TC; 84100-TC; 85025-TC; 85730-TC; 86850-TC; 87081-TC; A6209; C1769; G0378; J0690; J1644; J2470; J2704; J2795; J3490; J7030; Q9966